=== PATIENT | female | born 1980 | race Caucasian/White ===

== ENCOUNTER → 2017-05-28 | Outpatient (CLI) | payer OTHER ==
--- NOTE | 2017-05-28 12:37 | RADIOLOGY REPORT (SQ) ---
EXAM DESCRIPTION: FOOT LEFT COMPLETE COMPLETED DATE/TIME: 05/28/2017 11:59 am REASON FOR STUDY: M79.672 PAIN IN LEFT FOOT M79.672 PAIN IN LEFT FOOT COMPARISON: None. NUMBER OF VIEWS: Three views. TECHNIQUE: AP, lateral and oblique radiographic images acquired of the left foot. LIMITATIONS: None. FINDINGS: MINERALIZATION: Normal. BONES: No acute fracture or dislocation. Prominent plantar calcaneal spur. JOINTS: No effusions. SOFT TISSUES: No soft tissue swelling. No foreign body. OTHER: No other significant finding. IMPRESSION: Calcaneal spur with no acute abnormality. TECHNICAL DOCUMENTATION: JOB ID: [id number] [employer]- All Rights Reserved
== END ==
LOC: RAD 11:38
PROVIDERS: ATTEND Family Medicine
DX: M79.672 Pain in left foot (principal)

== ENCOUNTER 2020-01-15 10:10 | Emergency (ER) | payer BC ==
--- NOTE | 2020-01-15 11:11 | ER Document Report ---
ED Medical Screen (RME) - General Chief Complaint: Chest Pain Stated Complaint: CHEST PAIN Time Seen by Provider: 01/15/20 11:05 Primary Care Provider: ANA ROSA HAYES [Primary Care Provider] - Follow up as needed Mode of Arrival: Ambulatory Information source: Patient Notes: HPI; 39-year-old female presents the emergency room with intermittent squeezing and tightness to her chest. States she woke up 3 AM this morning started having pain shortly after awakening. Worse around 7 AM. Went and saw her PCP who did an EKG and gave her 4 baby aspirin and sent her to the emergency room. States pain is slightly better but still describes it as a squeezing tightness in the center of her chest. PE: Alert and oriented x3. Mild distress noted. Lungs: Tattered expiratory wheezes no rhonchi no rales. Heart: Regular rate rhythm without murmurs rubs or gallops. I have greeted and performed a rapid initial assessment of this patient. A comprehensive ED assessment and evaluation of the patient, analysis of test results and completion of the medical decision making process will be conducted by additional ED providers. I have specifically instructed the patient or family members with the patient to immediately return to any nursing staff should anything change in the patient's condition or with their chief complaint. TRAVEL OUTSIDE OF THE [place] IN LAST 30 DAYS: No - Related Data Allergies/Adverse Reactions: No Known Allergies Allergy (Unverified 01/15/20 11:06) Physical Exam - Vital signs Vitals: Temp Pulse Resp BP Pulse Ox 98.2 F 57 L 18 146/95 H 100 01/15/20 10:01/15/20 10:01/15/20 10:01/15/20 10:01/15/20 10:21 Course - Vital Signs Vital signs: Temp Pulse Resp BP Pulse Ox 98.2 F 57 L 18 146/95 H 100 01/15/20 10:01/15/20 10:01/15/20 10:01/15/20 10:01/15/20 10:21 Doctor's Discharge - Discharge Referrals: ANA ROSA HAYES [Primary Care Provider] - Follow up as needed
--- NOTE | 2020-01-15 11:51 | RADIOLOGY REPORT (SQ) ---
EXAM DESCRIPTION: CHEST 2 VIEWS IMAGES COMPLETED DATE/TIME: 01/15/2020 11:22 am REASON FOR STUDY: chest pain COMPARISON: 09/01/2007 EXAM PARAMETERS: NUMBER OF VIEWS: two views TECHNIQUE: Digital Frontal and Lateral radiographic views of the chest acquired. RADIATION DOSE: NA LIMITATIONS: none FINDINGS: LUNGS AND PLEURA: No opacities, masses or pneumothorax. No pleural effusion. MEDIASTINUM AND HILAR STRUCTURES: No masses or contour abnormalities. HEART AND VASCULAR STRUCTURES: Heart normal size. No evidence for failure. BONES: No acute findings. HARDWARE: None in the chest. OTHER: No other significant finding. IMPRESSION: NO ACUTE RADIOGRAPHIC FINDING IN THE CHEST. TECHNICAL DOCUMENTATION: JOB ID: [id number] 2010 [employer]- All Rights Reserved Reading location - IP/workstation name: [email or web address]
[2020-01-15 12:02] LABS: ABSOLUTE BASOPHILS # (AUTO) 0.1 10^3/uL (0.0-0.2); ABSOLUTE EOSINOPHILS # (AUTO) 0.2 10^3/uL (0.0-0.6); ABSOLUTE MONOCYTES (AUTO) 0.6 10^3/uL (0.1-1.4); ABSOLUTE NEUT (AUTO) 6.2 10^3/uL (1.7-8.2); BASOPHILS % (AUTO) 0.8 % (0-2); EOSINOPHILS % (AUTO) 2.1 % (0-6); HEMATOCRIT 37.9 % (36.0-47.0); HEMOGLOBIN 13.1 g/dL (12.0-15.5); LYMPHOCYTES % (AUTO) 29.4 % (13-45); MEAN CORPUSCULAR HEMOGLOBIN 30.7 pg (27.0-33.4); MEAN CORPUSCULAR HGB CONC 34.6 g/dL (32.0-36.0); MEAN CORPUSCULAR VOLUME 89 fl (80-97); MONOCYTES % (AUTO) 6.3 % (3-13); PLATELET COUNT 383 10^3/uL (150-450); RED BLOOD COUNT 4.28 10^6/uL (3.72-5.28); RED CELL DISTRIBUTION WIDTH 13.9 % (11.5-14.0); SEGMENTED NEUTROPHILS % (AUTO) 61.4 % (42-78); TOTAL CELLS COUNTED % (AUTO) 100 %; WHITE BLOOD COUNT 10.1 10^3/uL (4.0-10.5)
[2020-01-15 12:13] LABS: ALKALINE PHOSPHATASE 115 U/L (38-126); ANION GAP 8 (5-19); ASPARTATE AMINO TRANSFERASE 24 U/L (14-36); BILIRUBIN,TOTAL 0.4 mg/dL (0.2-1.3); BLOOD UREA NITROGEN 13 mg/dL (7-20); CARBON DIOXIDE 27 mmol/L (22-30); CHLORIDE 102 mmol/L (98-107); CREATINE KINASE 61 U/L (30-135); GLUCOSE 102 mg/dL (75-110); POTASSIUM 3.3 mmol/L (3.6-5.0); TOTAL PROTEIN 7.2 g/dL (6.3-8.2)
[2020-01-15 12:25] LABS: CREATINE KINASE MB 0.24 ng/mL (<4.55); TROPONIN I < 0.012 ng/mL
[2020-01-15] MEDS ORDERED: POTASSIUM CHLORIDE 20 MEQ PACKET PO ONE (17:39)
[2020-01-15 18:19] VITALS: BP 129/67
--- NOTE | 2020-01-15 21:06 | EKG REPORT ---
SEVERITY:- BORDERLINE ECG - SINUS RHYTHM BORDERLINE T ABNORMALITIES, ANTERIOR LEADS : Confirmed by: Rj Nolasco MD 15-Jan-2020 21:06:03
--- NOTE | 2020-01-16 01:14 | ER Document Report ---
Entered by ASHLEY STEVEN SCRIBE 01/15/20 [id number] Acting as scribe for:CHELLY ALTAMIRANO DO ED General - General Chief Complaint: Chest Pain > 30 Stated Complaint: CHEST PAIN Time Seen by Provider: 01/15/20 11:05 Primary Care Provider: ANA ROSA HAYES [NO LOCAL MD] - Follow up as needed TATYANA REYNA MD [ACTIVE PROVISIONAL STAFF] - 01/16/20 Mode of Arrival: Ambulatory Information source: Patient Notes: This 39 year old female patient with a history of HTN, HLD, and FHx of CAD presents to the ED today with complaints of intermittent chest pain that started around 0300 this morning. Patient describes the pain as a squeezing sensation in the center of her chest. She states that she rolled over in bed to check on her felt the sudden onset of pain. She states that the pain eased off and she was able to sleep for about x30 minutes around 0600 and the pain returned at 0700. She reports that she went to [facility] and had an EKG that read "consider inferior myocardial infarction", so her PCP gave her x4 baby aspirin and sent her to the ED. TRAVEL OUTSIDE OF THE [place] IN LAST 30 DAYS: No - Related Data Allergies/Adverse Reactions: No Known Allergies Allergy (Unverified 01/15/20 11:06) Home Medications: duloxetine, baby asa, metoprolol tart, loratadine, provastin, alprazolam prn, proair prn, gabapentin, vit d, triam/hctz Past Medical History - General Information source: Patient - Social History Smoking Status: Never Smoker Cigarette use (# per day): No Chew tobacco use (# tins/day): No Smoking Education Provided: No Frequency of alcohol use: Rare Drug Abuse: None Lives with: Spouse/Significant other Family History: Reviewed & Not Pertinent, CAD - Dad w/ stents in his 40s Patient has suicidal ideation: No Patient has homicidal ideation: No - Past Medical History Cardiac Medical History: Reports: Hx Hypercholesterolemia, Hx Hypertension Pulmonary Medical History: Reports: Hx Asthma GI Medical History: Reports: Hx Gastroesophageal Reflux Disease Psychiatric Medical History: Reports: Hx Anxiety Traumatic Medical History: Reports: Hx Fractures - Left talus Past Surgical History: Reports: Hx Tubal Ligation Review of Systems - Review of Systems Constitutional: No symptoms reported EENT: No symptoms reported Cardiovascular: See HPI, Chest pain Respiratory: See HPI, Sputum Gastrointestinal: See HPI, Vomiting Genitourinary: No symptoms reported Female Genitourinary: See HPI, Last menstrual period - last week Musculoskeletal: No symptoms reported Skin: No symptoms reported Hematologic/Lymphatic: See HPI, Easy bruising Neurological/Psychological: No symptoms reported -: Yes All other systems reviewed and negative Physical Exam - Vital signs Vitals: Temp Pulse Resp BP Pulse Ox 98.2 F 57 L 18 146/95 H 100 01/15/20 10:21 01/15/20 10:21 01/15/20 10:21 01/15/20 10:21 01/15/20 10:21 - General General appearance: Alert In distress: None - HEENT Head: Normocephalic, Atraumatic Eyes: Normal Pupils: PERRL - Respiratory Respiratory status: No respiratory distress Chest status: Tender - Mild sternal tenderness to palpation Breath sounds: Normal Chest palpation: Normal - Cardiovascular Rhythm: Regular Heart sounds: Normal auscultation Murmur: No Friction rub: No Gallop: None auscultated - Abdominal Inspection: Normal Distension: No distension Bowel sounds: Normal Tenderness: Tender - Mild epigastric pain, LUQ tenderness to palpation, Other - Abdomen soft Organomegaly: No organomegaly - Back Back: Normal, Nontender - Extremities General upper extremity: Normal inspection General lower extremity: Normal inspection. No: Edema - Neurological Neuro grossly intact: Yes Orientation: AAOx4 Bryant Coma Scale Eye Opening: Spontaneous Bryant Coma Scale Verbal: Oriented Jeremy Coma Scale Motor: Obeys Commands Jeremy Coma Scale Total: 15 - Psychological Associated symptoms: Normal affect, Normal mood - Skin Skin Temperature: Warm Skin Moisture: Dry Skin Color: Normal Skin irregularity: other - Ecchymosis to lower extremities Course - Re-evaluation Re-evalutation: 01/15/20 17:44 MDM 39 year old with chest pain since 3 am. Better now. Nontoxic and reassuring workup here. She should have functional study and will refer her to local cardiology for this. She is already taking aspirin and has well controlled Htn. SBP 115 with me in room. - Vital Signs Vital signs: Temp Pulse Resp BP Pulse Ox 97.3 F 51 L 16 138/75 H 98 01/15/20 14:56 01/15/20 14:56 01/15/20 14:56 01/15/20 14:56 01/15/20 16:12 - Laboratory Result Diagrams: 01/15/20 11:40 01/15/20 11:40 Laboratory results interpreted by me: 01/15/20 11:40 Sodium 136.9 L Potassium 3.3 L - Diagnostic Test Radiology reviewed: Reports reviewed - EKG Interpretation by Me EKG shows normal: Sinus rhythm Rate: Bradycardia Rhythm: NSR - Sinus Elias [address] elevation or depression my interpretation. Boon/QRS: No: Right axis deviation Voltage: No: Increased voltage Discharge - Discharge Clinical Impression: Chest pain Qualifiers: Chest pain type: unspecified Qualified Code(s): R07.9 - Chest pain, unspecified Condition: Stable Disposition: HOME, SELF-CARE Instructions: Aspirin (Cardiac) ([facility]), Chest Wall Pain ([facility]), Chest Pain of Unclear Cause ([facility]) Additional Instructions: Rest, fluids, please return here for any problems or any concerns. Take the protonix as directed for reflux. Call [place] and Dr. Reyna office for fol low up. Prescriptions: Pantoprazole Sodium [Protonix [address] Tablet] 40 mg PO QAM #30 tablet. Pantoprazole Sodium [Protonix [address] Tablet] 40 mg PO QAM #30 tablet. Forms: Return to Work Referrals: ANA ROSA HAYES [NO LOCAL MD] - Follow up as needed TATYANA REYNA MD [ACTIVE PROVISIONAL STAFF] - 01/16/20 I personally performed the services described in the documentation, reviewed and edited the documentation which was dictated to the scribe in my presence, and it accurately records my words and actions.
== END 2020-01-15 18:18 | disposition home or self-care (01) ==
LOC: ER 10:10
DX: R07.9 Chest pain, unspecified (principal); I10 Essential (primary) hypertension; I25.10 Atherosclerotic heart disease of native coronary artery without angina pectoris; E78.00 Pure hypercholesterolemia, unspecified; Z98.51 Tubal ligation status
CPT/HCPCS: 93005; 99285; 36415; 82553; 82550; 85025; 80053; 84484; 71046; 93010; J3490

== ENCOUNTER 2020-03-25 05:35 | Inpatient (IN) | payer BC ==
[2020-03-25] MEDS ORDERED: IPRATROPIUM/ALBUTEROL 0.5-2.5 MG/3 ML AMPUL NEB ONE (07:02)
[2020-03-25 08:11] LABS: ABSOLUTE MONOCYTES (AUTO) 0.3 10^3/uL (0.1-1.4); ABSOLUTE NEUT (AUTO) 4.9 10^3/uL (1.7-8.2); BASOPHILS % (AUTO) 0.5 % (0-2); EOSINOPHILS % (AUTO) 0.2 % (0-6); HEMATOCRIT 34.4 % (36.0-47.0); HEMOGLOBIN 11.9 g/dL (12.0-15.5); LYMPHOCYTES % (AUTO) 15.6 % (13-45); MEAN CORPUSCULAR HEMOGLOBIN 29.2 pg (27.0-33.4); MEAN CORPUSCULAR HGB CONC 34.5 g/dL (32.0-36.0); MEAN CORPUSCULAR VOLUME 85 fl (80-97); MONOCYTES % (AUTO) 5.3 % (3-13); PLATELET COUNT 263 10^3/uL (150-450); RED BLOOD COUNT 4.07 10^6/uL (3.72-5.28); RED CELL DISTRIBUTION WIDTH 13.5 % (11.5-14.0); SEGMENTED NEUTROPHILS % (AUTO) 78.4 % (42-78); TOTAL CELLS COUNTED % (AUTO) 100 %; WHITE BLOOD COUNT 6.2 10^3/uL (4.0-10.5)
[2020-03-25 08:13] LABS: ARTERIAL BLOOD BASE EXCESS 2.8 mmol/L; ARTERIAL BLOOD FIO2 ROOM AIR; ARTERIAL BLOOD H2CO3 1.14 mmol/L (1.05-1.35); ARTERIAL BLOOD HCO3 26.5 mmol/L (20-24); ARTERIAL BLOOD O2 SATURATION 92.5 % (94-98); ARTERIAL BLOOD PCO2 37.9 mmHg (35-45); ARTERIAL BLOOD PH 7.46 (7.35-7.45); ARTERIAL BLOOD PO2 60.2 mmHg (80-100); ARTERIAL BLOOD TOTAL CO2 27.7 mmol/L (21-25)
[2020-03-25] MEDS ORDERED: ONDANSETRON HCL INJ/PF 4 MG/2 ML SDV IV ONE (08:17)
[2020-03-25] MEDS ORDERED: KETOROLAC TROMETHAMINE INJ/PF 30 MG/1 ML SDV IV ONE (08:17)
[2020-03-25] MEDS ORDERED: NORMAL SALINE 1000 ML 1,000 ML IV ONE (08:17)
[2020-03-25] MEDS ORDERED: METHYLPREDNISOLONE INJ 125 MG/2 ML SDV IV ONE (08:17)
--- NOTE | 2020-03-25 08:20 | ER Document Report ---
Entered by TACO DAVIS SCRIBE 03/25/20 0740 Acting as scribe for:ERICKA AGUILAR MD ED Respiratory Problem - General Chief Complaint: Breathing Difficulty Stated Complaint: DIFFICULTY BREATHING Time Seen by Provider: 03/25/20 06:46 Mode of Arrival: Ambulatory Information source: Patient Notes: This 40 year old female patient with asthma that is COVID-19 positive presents to the emergency department today with complaints of shortness of breath. She began having symptoms on March 14 and was tested on March 15. She reports increasing shortness of breath over the last few days becoming the worst last night. Patient also complains of posttussive emesis. TRAVEL OUTSIDE OF THE [place] IN LAST 30 DAYS: No - Related Data Allergies/Adverse Reactions: alyson Allergy (Unknown, Verified 03/25/20 06:11) pepper (genus Capsicum) Allergy (Unknown, Verified 03/25/20 06:11) PLASTIC GROCERY BAGS Adverse Reaction (Uncoded 03/25/20 06:11) Past Medical History - General Information source: Patient - Social History Smoking Status: Never Smoker Cigarette use (# per day): No Chew tobacco use (# tins/day): No Frequency of alcohol use: None Drug Abuse: None Lives with: Family Family History: Reviewed & Not Pertinent, CAD - Dad w/ stents in his 40s Patient has homicidal ideation: No - Past Medical History Cardiac Medical History: Reports: Hx Hypercholesterolemia, Hx Hypertension Pulmonary Medical History: Reports: Hx Asthma GI Medical History: Reports: Hx Gastroesophageal Reflux Disease Psychiatric Medical History: Reports: Hx Anxiety Traumatic Medical History: Reports: Hx Fractures - Left talus Past Surgical History: Reports: Hx Tubal Ligation Review of Systems - Review of Systems Constitutional: See HPI, Fever EENT: No symptoms reported Cardiovascular: No symptoms reported Respiratory: See HPI, Cough, Short of breath Gastrointestinal: See HPI, Vomiting Genitourinary: No symptoms reported Female Genitourinary: No symptoms reported Musculoskeletal: No symptoms reported Skin: No symptoms reported Hematologic/Lymphatic: No symptoms reported Neurological/Psychological: No symptoms reported -: Yes All other systems reviewed and negative Physical Exam - Vital signs Vitals: Resp 25 H 03/25/20 05:35 - Notes Notes: Physical Exam: General: Alert, appears well. HEENT: Normocephalic. Atraumatic. PERRL. Extraocular movements intact. Oropharynx clear. Neck: Supple. Non-tender. Respiratory: Moderate respiratory distress. Wheezing bilaterally, tachypneic. Anterior chest wall tenderness to palpation. Cardiovascular: Tachycardic, regular rhythm. Abdominal: Normal Inspection. Non-tender. No distension. Normal Bowel Sounds. Back: No gross abnormalities. Extremities: Moves all four extremities. Upper extremities: Normal inspection. Normal ROM. Lower extremities: Normal inspection. No edema. Normal ROM. Neurological: Normal cognition. AAOx4. Normal speech. Psychological: Normal affect. Normal Mood. Skin: Warm. Dry. Normal color. Course - Re-evaluation Re-evalutation: 03/25/20 14:01 The patient was evaluated during the global COVID-19 pandemic and that diagnosis was suspected/considered upon their initial presentation. Their evaluation, treatment and testing was consistent with current guidelines for patients who present with complaints or symptoms that may be related to COVID-19. - Vital Signs Vital signs: Temp Pulse Resp BP Pulse Ox 97.9 F 76 18 127/69 H 90 L 03/27/20 15:34 03/27/20 15:34 03/27/20 15:34 03/27/20 15:34 03/27/20 15:34 - Laboratory Result Diagrams: 03/27/20 05:00 03/25/20 11:24 Laboratory results interpreted by me: 03/25/20 03/25/20 03/25/20 06:01 06:01 07:43 Hgb 11.9 L Hct 34.4 L Seg Neutrophils % 78.4 H ABG pH 7.46 H ABG pO2 60.2 L ABG HCO3 26.5 H ABG Total CO2 27.7 H ABG O2 Saturation 92.5 L Sodium 134.3 L Potassium 3.1 L Glucose 125 H - Diagnostic Test Radiology reviewed: Image reviewed, Reports reviewed - Chest x-ray shows patchy parenchymal airspace disease worrisome for multifocal pneumonia. - EKG Interpretation by Me EKG shows normal: Sinus rhythm, [place], Intervals. abnormal: QRS Complexes - Inferior Q's, ST-T Waves - Borderline anterior T abnormalities Rate: Normal - 80 Rhythm: NSR When compared to previous EKG there are: No significant change Critical Care Note - Critical Care Note Total time excluding time spent on procedures (mins): 40 Comments: At least 40 minutes spent evaluating the patient getting history and physical, reviewing lab work, repeat evaluation in determining just how hypoxic she was and the need for admission to the hospital. Time spent discussing the case with the hospitalist. Discharge - Discharge Clinical Impression: Lab test positive for detection of COVID-19 virus, Pneumonia due to 2019 novel coronavirus, Hypoxemia Condition: Fair Disposition: ADMITTED INPATIENT Admitting Provider: William (Hospitalist) Unit Admitted: Telemetry I personally performed the services described in the documentation, reviewed and edited the documentation which was dictated to the scribe in my presence, and it accurately records my words and actions.
[2020-03-25 08:23] LABS: ALBUMIN 3.5 g/dL (3.5-5.0); ALKALINE PHOSPHATASE 98 U/L (38-126); ANION GAP 9 (5-19); ASPARTATE AMINO TRANSFERASE 29 U/L (14-36); BILIRUBIN,DIRECT 0.3 mg/dL (0.0-0.4); BILIRUBIN,TOTAL 0.6 mg/dL (0.2-1.3); BLOOD UREA NITROGEN 13 mg/dL (7-20); CALCIUM 8.4 mg/dL (8.4-10.2); CARBON DIOXIDE 26 mmol/L (22-30); CHLORIDE 99 mmol/L (98-107); CREATINE KINASE 55 U/L (30-135); GLUCOSE 125 mg/dL (75-110); POTASSIUM 3.1 mmol/L (3.6-5.0); TOTAL PROTEIN 6.6 g/dL (6.3-8.2)
--- NOTE | 2020-03-25 08:27 | RADIOLOGY REPORT (SQ) ---
EXAM DESCRIPTION: CHEST SINGLE VIEW IMAGES COMPLETED DATE/TIME: 03/25/2020 7:38 am REASON FOR STUDY: COVID respiratory distress COMPARISON: AP chest 01/15/2020 EXAM PARAMETERS: NUMBER OF VIEWS: One view. TECHNIQUE: Single frontal radiographic view of the chest acquired. RADIATION DOSE: NA LIMITATIONS: None. FINDINGS: LUNGS AND PLEURA: Patchy bilateral lung parenchymal airspace disease worrisome for multifo tanja pneumonia. No pleural effusion. No pneumothorax. MEDIASTINUM AND HILAR STRUCTURES: No masses. Contour normal. HEART AND VASCULAR STRUCTURES: Heart normal in size. Normal vasculature. BONES: No acute findings. HARDWARE: None in the chest. OTHER: No other significant finding. IMPRESSION: Patchy bilateral lung parenchymal airspace disease worrisome for multifocal pneumonia TECHNICAL DOCUMENTATION: JOB ID: [id number] 2010 [employer]- All Rights Reserved Reading location - IP/workstation name: [email or web address]
[2020-03-25 08:36] LABS: APPEARANCE,URINE CLEAR; BILIRUBIN,URINE NEGATIVE (NEGATIVE); COLOR,URINE YELLOW; GLUCOSE, URINE NEGATIVE (NEGATIVE); KETONES,URINE NEGATIVE (NEGATIVE); LEUKOCYTE ESTERASE,URINE NEGATIVE (NEGATIVE); NITRITE,URINE NEGATIVE (NEGATIVE); PROTEIN,URINE NEGATIVE (NEGATIVE); URINE SPECIFIC GRAVITY 1.018; UROBILINOGEN,URINE NEGATIVE mg/dL (<2.0)
[2020-03-25] MEDS ORDERED: ONDANSETRON HCL INJ/PF 4 MG/2 ML SDV IV PRN (10:04)
[2020-03-25] MEDS ORDERED: IPRATROPIUM/ALBUTEROL 0.5-2.5 MG/3 ML AMPUL NEB PRN (10:04)
[2020-03-25] MEDS ORDERED: ACETAMINOPHEN 325 MG TABLET PO PRN (10:04)
[2020-03-25] MEDS ORDERED: MAG HYDROX/AL HYDROX/SIMETH SUSP 30 ML UDCUP PO PRN (10:04)
[2020-03-25] MEDS ORDERED: TEMAZEPAM 7.5 MG CAPSULE PO PRN (10:04)
[2020-03-25] MEDS ORDERED: MAGNESIUM HYDROXIDE SUSP 30 ML UDCUP PO PRN (10:04)
[2020-03-25] MEDS ORDERED: PHARMACY COMMUNICATION ORDER MC NR (10:45)
[2020-03-25] MEDS: ACYCLOVIR 200 MG CAPSULE PO SCH ×2 (11:36→17:50)
[2020-03-25] MEDS: AZITHROMYCIN 250 MG TABLET PO SCH (11:36)
[2020-03-25] MEDS: DEXAMETHASONE 4 MG TABLET PO SCH ×2 (11:36→17:50)
[2020-03-25] MEDS: RINGERS SOLUTION,LACTATED 1,000 ML IV PRN ×2 (11:37→22:08)
[2020-03-25] MEDS: ENOXAPARIN SODIUM INJ 40 MG/0.4 ML DISP.SYRIN SUBCUT SCH (11:37)
[2020-03-25] MEDS: OXYCODONE-ACETAMINOPHEN 5-325 MG TABLET PO PRN ×2 (11:39→20:18)
[2020-03-25 11:59] LABS: ANION GAP 9 (5-19); BLOOD UREA NITROGEN 11 mg/dL (7-20); CALCIUM 8.1 mg/dL (8.4-10.2); CARBON DIOXIDE 24 mmol/L (22-30); CHLORIDE 103 mmol/L (98-107); GLUCOSE 132 mg/dL (75-110); POTASSIUM 3.7 mmol/L (3.6-5.0)
[2020-03-25 12:02] LABS: C-REACTIVE PROTEIN 71.3 mg/L (<10.0)
--- NOTE | 2020-03-25 13:13 | EKG REPORT ---
SEVERITY:- BORDERLINE ECG - SINUS RHYTHM INFERIOR Q WAVES, PROBABLY NORMAL VARIATION BORDERLINE T ABNORMALITIES, ANTERIOR LEADS : Confirmed by: Inder Brock MD 25-Mar-2020 13:12:17
[2020-03-25] MEDS: IPRATROPIUM/ALBUTEROL 0.5-2.5 MG/3 ML AMPUL NEB SCH ×2 (14:39→21:24)
[2020-03-25] MEDS ORDERED: REMDESIVIR (EUA) 200 MG in NORMAL SALINE 250 ML IV ONE (15:00)
[2020-03-25] MEDS: GUAIFENESIN/CODEINE PHOS 100-10 MG/ 5 ML UDC PO PRN (15:23)
[2020-03-25] MEDS: ASCORBIC ACID 500 MG TABLET PO SCH (17:50)
--- NOTE | 2020-03-25 18:16 | PDOC H&P ---
History of Present Illness Admission Date/PCP: 03/25/20 09:30 LUIS CHOW-Yazmin Patient complains of: Shortness of breath , Positive COVID History of Present Illness: JANI SEPULVEDA is a 40 year old female with past medical history of mild intermittent asthma, hypertension, GERD, HLD, anxiety and confirmed positive COVID-19 (03/15/2020) who reported to the emergency department today with concerns regarding x1 week history of increasing shortness of breath. Reports associated fevers, chills, generalized weakness, chest wall pain, palpitations, cough, postutssive emesis, and NVD. Symptoms treated with cough syrup and increased use/frequency of albuterol. Symptoms have progressively increased in severity since onset and became intolerable last night which prompted her visit to the emergency department. Evaluation in the Emergency Department significant for tachycardia, tachypnea, O2 sat 88% on room air. She is afebrile with blood pressure in the 120/70s. Hypoxemic (pO2 60l.2) on ABG. Hyponatrmic and hypokalemic on chemistry. CXR consistent with multifocal pneumonia. Troponin and D-dimer negative. Patient was placed on NC 3L and treated single dose methylprednisolone and IV fluids. She was subsequently admitted to the hospitalist service for further treatment and evaluation. Past Medical History Cardiac Medical History: Reports: Hyperlipidema, Hypertension Pulmonary Medical History: Reports: Asthma GI Medical History: Reports: Gastroesophageal Reflux Disease Psychiatric Medical History: Reports: General Anxiety Disorder Past Surgical History Past Surgical History: Reports: Tubal Ligation Social History Information Source: Patient Lives with: Family Smoking Status: Never Smoker Electronic Cigarette use?: No Frequency of Alcohol Use: Rare Hx Recreational Drug Use: No Drugs: None Hx Prescription Drug Abuse: No - Advance Directive Resuscitation Status: Full Code Family History Family History: CAD - Dad w/ stents in his 40s, DM, Hypertension, Other - Asthma Parental Family History Reviewed: Yes Children Family History Reviewed: Yes Sibling(s) Family History Reviewed.: Yes Medication/Allergy Home Medications: Pantoprazole Sodium [Protonix [address] Tablet] 40 mg PO QAM #30 tablet. 01/15/20 Fluoxetine HCl [Prozac] 20 mg PO QAM 03/25/20 Gabapentin [Neurontin 300 mg Capsule] 300 mg PO Q8 03/25/20 Metoprolol Tartrate [Lopressor] 50 mg PO TID 03/25/20 Pravastatin Sodium 40 mg PO DAILY 03/25/20 Promethazine HCl/Codeine [Prometh-Codein 6.25-10 mg/5 ml] 5 ml PO Q6HP PRN 03/25/20 Triamterene/Hydrochlorothiazid [Triamterene-Hctz 37.5-25 mg Tb] 1 each PO DAILY 03/25/20 Allergies/Adverse Reactions: alyson Allergy (Unknown, Verified 03/25/20 06:11) pepper (genus Capsicum) Allergy (Unknown, Verified 03/25/20 06:11) PLASTIC GROCERY BAGS Adverse Reaction (Uncoded 03/25/20 06:11) Review of Systems Constitutional: PRESENT: chills, fatigue, fever(s), headache(s) Eyes: ABSENT: visual disturbances Nose, Mouth, and Throat: PRESENT: headache(s). ABSENT: vertigo Cardiovascular: PRESENT: dyspnea on exertion. ABSENT: chest pain Respiratory: PRESENT: cough, dyspnea. ABSENT: hemoptysis Gastrointestinal: PRESENT: abdominal pain, diarrhea, nausea, vomiting. ABSENT: constipation, hematemesis Genitourinary: ABSENT: difficulty urinating, dysuria, hematuria Musculoskeletal: ABSENT: back pain, deformity Integumentary: PRESENT: diaphoresis Neurological: PRESENT: paresthesias. ABSENT: abnormal speech, confusion, dizziness Psychiatric: ABSENT: anxiety, depression Endocrine: ABSENT: cold intolerance, heat intolerance, polyphagia, polyuria Hematologic/Lymphatic: ABSENT: easy bruising, lymphadenopathy Allergic/Immunologic: PRESENT: seasonal rhinorrhea Physical Exam Vital Signs: Temp Pulse Resp BP Pulse Ox 99.9 F 27 H 110/55 L 97 03/25/20 05:36 03/25/20 09:01 03/25/20 09:01 03/25/20 09:01 Intake & Output 03/24/20 03/25/20 03/26/20 06:59 06:59 06:59 Intake Total 1000 Balance 1000 Weight 117.6 kg General appearance: PRESENT: cooperative, obese, other - Moderate distress Head exam: PRESENT: atraumatic, normocephalic Eye exam: PRESENT: conjunctiva pink, EOMI, PERRLA Ear exam: PRESENT: normal external ear exam. ABSENT: bleeding, drainage Mouth exam: PRESENT: dry mucosa, tongue midline Neck exam: PRESENT: full ROM. ABSENT: lymphadenopathy, tenderness Respiratory exam: PRESENT: chest wall tenderness, tachypnea, wheezes - Bilaterally, other - Moderate respiratory distress. ABSENT: retraction Cardiovascular exam: PRESENT: RRR, tachycardia GI/Abdominal exam: PRESENT: normal bowel sounds, soft, tenderness - diffuse. ABSENT: distended, firm, guarding, rigid Rectal exam: PRESENT: deferred Extremities exam: PRESENT: full ROM. ABSENT: calf tenderness, clubbing Musculoskeletal exam: PRESENT: ambulatory, full ROM. ABSENT: deformity, dislocation Neurological exam: PRESENT: alert, awake, oriented to person, oriented to place, oriented to time, oriented to situation, CN II-XII grossly intact. ABSENT: motor sensory deficit Psychiatric exam: PRESENT: appropriate affect, normal mood Skin exam: PRESENT: dry, intact, warm. ABSENT: rash Results Laboratory Results: 03/25/20 06:01 03/25/20 06:01 03/25/20 03/25/20 03/25/20 06:01 06:01 07:43 WBC 6.2 RBC 4.07 Hgb 11.9 L Hct 34.4 L MCV 85 MCH 29.2 MCHC 34.5 RDW 13.5 Plt Count 263 Seg Neutrophils % 78.4 H Carbonic Acid 1.14 HCO3/H2CO3 Ratio 23:1 ABG pH 7.46 H ABG pCO2 37.9 ABG pO2 60.2 L ABG HCO3 26.5 H ABG O2 Saturation 92.5 L ABG Base Excess 2.8 FiO2 ROOM AIR Sodium 134.3 L Potassium 3.1 L Chloride 99 Carbon Dioxide 26 Anion Gap 9 BUN 13 Creatinine 0.73 Est GFR ( Amer) > 60 Glucose 125 H Calcium 8.4 Magnesium 2.1 Ferritin 58.10 Total Bilirubin 0.6 AST 29 Alkaline Phosphatase 98 Total Protein 6.6 Albumin 3.5 Urine Color Urine Appearance Urine pH Ur Specific Dale Urine Protein Urine Glucose (UA) Urine Ketones Urine Blood Urine Nitrite Ur Leukocyte Esterase Urine WBC (Auto) Urine RBC (Auto) 03/25/20 08:10 WBC RBC Hgb Hct MCV MCH MCHC RDW Plt Count Seg Neutrophils % Carbonic Acid HCO3/H2CO3 Ratio ABG pH ABG pCO2 ABG pO2 ABG HCO3 ABG O2 Saturation ABG Base Excess FiO2 Sodium Potassium Chloride Carbon Dioxide Anion Gap BUN Creatinine Est GFR ( Amer) Glucose Calcium Magnesium Ferritin Total Bilirubin AST Alkaline Phosphatase Total Protein Albumin Urine Color YELLOW Urine Appearance CLEAR Urine pH 6.0 Ur Specific Dale 1.018 Urine Protein NEGATIVE Urine Glucose (UA) NEGATIVE Urine Ketones NEGATIVE Urine Blood NEGATIVE Urine Nitrite NEGATIVE Ur Leukocyte Esterase NEGATIVE Urine WBC (Auto) 3 Urine RBC (Auto) 0 03/25/20 03/25/20 06:01 06:01 Creatine Kinase 55 Troponin I < 0.012 Impressions: Chest X-Ray 03/25/20 07:02 IMPRESSION: Patchy bilateral lung parenchymal airspace disease worrisome for multifocal pneumonia Assessment and Plan - Diagnosis (1) Lab test positive for detection of COVID-19 virus Is this a current diagnosis for this admission?: Yes Plan: History of +COVID test on 03/15/2020. On exam she is tachycardic, otherwise hemodynamically stable. D-dimer, troponin and ferratin negative. LDH (355) and CRP (71.3) elevated, will use values as baseline to monitor progression of disease. Treatment regimen initiated includes: -Azithromycin -Dexamethasone -Remdesivir -Melatonin, Vit C, Vit D, and Zync Provide supplemental oxygen as needed maintain saturations greater than 89%. As needed nebulizer treatments. Isolation precautions initiated. (2) Pneumonia due to 2019 novel coronavirus Is this a current diagnosis for this admission?: Yes Plan: Positive COVID test 03/15/2020 with CXR supporting penumonia consistent with COVID. Treatment otherwise as stated and discussed in 1. (3) Hypoxemia Is this a current diagnosis for this admission?: Yes Plan: pO2 60.2 on ABG, O2 sats at 88 on room air. 2L NC initiated with O2 sats 94. Monitor O2 sat closely. Advance oxygen therapy as necessary. (4) Hyponatremia Is this a current diagnosis for this admission?: Yes Plan: Hyponatremic 136.3. Treat with IV Fluids. Repeat BMP in the morning. (5) Asthma Qualifiers: Asthma severity: mild Asthma persistence: intermittent Asthma complication type: uncomplicated Qualified Code(s): J45.20 - Mild intermittent asthma, uncomplicated Is this a current diagnosis for this admission?: Yes Plan: History of mild, intermittent Asthma with increase in albuterol treatment to several times a day since COVID dx. Treat symptoms with scheduled breathing treatments. (6) GERD (gastroesophageal reflux disease) Qualifiers: Esophagitis presence: without esophagitis Qualified Code(s): K21.9 - Gastro-esophageal reflux disease without esophagitis Is this a current diagnosis for this admission?: Yes Plan: Treated with PPI and H2 blockade daily. Resume home treatment regimen (7) HTN (hypertension) Qualifiers: Hypertension type: essential hypertension Qualified Code(s): I10 - Essential (primary) hypertension Is this a current diagnosis for this admission?: Yes Plan: HTN well controlled in the 120s/70s. Resume home treatment regimen. Monitor. - Time Time Spent with patient: 35 or more minutes Medications reviewed and adjusted accordingly: Yes Anticipated Discharge Disposition: Home, Self Care Anticipated Discharge Timeframe: Unknown - Inpatient Certification Based on my medical assessment, after consideration of the patient's comorbidities, presenting symptoms, or acuity I expect that the services needed warrant INPATIENT care.: Yes I certify that my determination is in accordance with my understanding of [facility]'s requirements for reasonable and necessary INPATIENT services [42 CFR 412.3e].: Yes Medical Necessity: Failure to Improve With Outpatient Therapy, Significant Comorbidiites Make Outpatient Treatment Too Risky, Need Close Monitoring Due to Risk of Patient Decompensation, Need For IV Fluids, Need For Continuous Telemetry Monitoring, Need for Nebulizer Therapy and Monitoring of Response, Need for IV Antibiotics, Risk of Complication if Not Cared For in Hospital, Risk of Diagnosis Which Will Require Inpatient Eval/Care/Monitoring Post Hospital Care: D/C or Transfer Summary
[2020-03-25] MEDS: MELATONIN 3 MG TABLET PO SCH (22:08)
[2020-03-26] MEDS: DEXAMETHASONE 4 MG TABLET PO SCH ×2 (00:09→05:02)
[2020-03-26] MEDS: PANTOPRAZOLE SODIUM 40 MG TABLET.DR PO SCH (05:02)
[2020-03-26] MEDS: RINGERS SOLUTION,LACTATED 1,000 ML IV PRN ×2 (05:03→15:54)
[2020-03-26 05:21] LABS: ABSOLUTE MONOCYTES (AUTO) 0.3 10^3/uL (0.1-1.4); ABSOLUTE NEUT (AUTO) 5.1 10^3/uL (1.7-8.2); BASOPHILS % (AUTO) 0.3 % (0-2); HEMATOCRIT 34.5 % (36.0-47.0); HEMOGLOBIN 11.8 g/dL (12.0-15.5); LYMPHOCYTES % (AUTO) 15.3 % (13-45); MEAN CORPUSCULAR HGB CONC 34.2 g/dL (32.0-36.0); MEAN CORPUSCULAR VOLUME 85 fl (80-97); MONOCYTES % (AUTO) 5.4 % (3-13); PLATELET COUNT 253 10^3/uL (150-450); RED BLOOD COUNT 4.08 10^6/uL (3.72-5.28); RED CELL DISTRIBUTION WIDTH 13.7 % (11.5-14.0); TOTAL CELLS COUNTED % (AUTO) 100 %; WHITE BLOOD COUNT 6.4 10^3/uL (4.0-10.5)
[2020-03-26] MEDS: IPRATROPIUM/ALBUTEROL 0.5-2.5 MG/3 ML AMPUL NEB SCH ×3 (08:44→20:43)
[2020-03-26] MEDS: ENOXAPARIN SODIUM INJ 40 MG/0.4 ML DISP.SYRIN SUBCUT SCH (09:23)
[2020-03-26] MEDS: ASCORBIC ACID 500 MG TABLET PO SCH ×2 (09:25→17:09)
[2020-03-26] MEDS: CHOLECALCIFEROL (D3) 1,000 UNIT (25 MCG) TABLET PO SCH (09:25)
[2020-03-26] MEDS: AZITHROMYCIN 250 MG TABLET PO SCH (09:25)
[2020-03-26] MEDS: OXYCODONE-ACETAMINOPHEN 5-325 MG TABLET PO PRN (09:25)
[2020-03-26] MEDS: ZINC SULFATE 220 MG CAPSULE PO SCH (09:43)
[2020-03-26] MEDS ORDERED: ZINC SULFATE 220 MG CAPSULE PO SCH (10:00)
[2020-03-26] MEDS ORDERED: DEXAMETHASONE 4 MG TABLET PO SCH (10:00)
[2020-03-26] MEDS: DEXAMETHASONE SOD PHOS INJ 10 MG/1 ML VIAL IV SCH (11:47)
[2020-03-26] MEDS: REMDESIVIR (EUA) 100 MG in NORMAL SALINE 250 ML IV SCH (11:48)
--- NOTE | 2020-03-26 12:25 | PDOC PROGRESS REPORT ---
Subjective Progress Note for:: 03/26/20 Subjective:: JANI SEPULVEDA is a 40 year old female with past medical history of mild intermittent asthma, hypertension, GERD, HLD, anxiety and confirmed positive COVID-19 (03/15/2020) who reported to the emergency department today with concerns regarding x1 week history of increasing shortness of breath. Reports associated fevers, chills, generalized weakness, chest wall pain, palpitations, cough, postutssive emesis, and NVD. Symptoms treated with cough syrup and increased use/frequency of albuterol. Symptoms have progressively increased in severity since onset and became intolerable last night which prompted her visit to the emergency department. Evaluation in the Emergency Department significant for tachycardia, tachypnea, O2 sat 88% on room air. She is afebrile with blood pressure in the 120/70s. Hypoxemic (pO2 60l.2) on ABG. Hyponatremic and hypokalemic on chemistry. CXR consistent with multifocal pneumonia. Troponin and D-dimer negative. Patient was placed on NC 3L and treated single dose methylprednisolone and IV fluids. She was subsequently admitted to the hospitalist service for further treatment and evaluation. D2 hospital stay 03/26/20. She was seen and examined at bedside. She reports that her breathing seems much worse today compared to yesterday, although her O2 requirements has not increased. She still reports having LBM. Appetite is fair, she is afebrile. She received her first dose of remdesivir today. D2 of dexamethasone. She is also D2 of zithromax. Reason For Visit: COVID Physical Exam Vital Signs: Temp Pulse Resp BP Pulse Ox 97.6 F 55 L 18 133/70 H 94 03/26/20 10:00 03/26/20 08:16 03/26/20 08:16 03/26/20 08:16 03/26/20 08:44 Intake & Output 03/25/20 03/26/20 03/27/20 06:59 06:59 06:59 Intake Total 3510 640 Balance 3510 640 Weight 117.6 kg 119.6 kg General appearance: PRESENT: mild distress, morbidly obese Head exam: PRESENT: atraumatic, normocephalic Eye exam: PRESENT: EOMI, PERRLA Ear exam: PRESENT: normal external ear exam Mouth exam: PRESENT: moist Neck exam: PRESENT: full ROM Respiratory exam: PRESENT: rales, symmetrical, tachypnea. ABSENT: wheezes Cardiovascular exam: PRESENT: RRR, +S1, +S2 Pulses: PRESENT: +2 pedal pulses bilateral GI/Abdominal exam: PRESENT: normal bowel sounds, soft. ABSENT: rebound, tenderness Extremities exam: PRESENT: full ROM Musculoskeletal exam: PRESENT: full ROM Neurological exam: PRESENT: alert, awake, oriented to person, oriented to place, oriented to time, oriented to situation Psychiatric exam: PRESENT: normal mood Skin exam: PRESENT: normal color Results Laboratory Results: 03/26/20 04:14 03/25/20 11:24 03/25/20 03/26/20 03/26/20 13:15 04:14 04:14 WBC 6.4 RBC 4.08 Hgb 11.8 L Hct 34.5 L MCV 85 MCH 29.0 MCHC 34.2 RDW 13.7 Plt Count 253 Seg Neutrophils % 79.0 H Lactic Acid 1.2 Magnesium 2.3 03/25/20 03/25/20 06:01 06:01 Creatine Kinase 55 Troponin I < 0.012 Impressions: Chest X-Ray 03/25/20 07:02 IMPRESSION: Patchy bilateral lung parenchymal airspace disease worrisome for mu ltifocal pneumonia Assessment and Plan - Diagnosis (1) Pneumonia due to 2019 novel coronavirus Is this a current diagnosis for this admission?: Yes Plan: Positive COVID test 03/15/2020 with CXR supporting pneumonia consistent with COVID. - on 2L NC - D-dimer, troponin and ferritin negative. - LDH (355) and CRP (71.3) elevated - Dexa 6 mg IV day 2 - Remdesivir D1 - Vit C, zinc, Vit D - O2 support as needed (2) Acute respiratory failure with hypoxia Is this a current diagnosis for this admission?: Yes Plan: - 2/2 to COVID pneumonia - continue O2 support at 2l NC increase as needed (3) Asthma Qualifiers: Asthma severity: mild Asthma persistence: intermittent Asthma complication type: uncomplicated Qualified Code(s): J45.20 - Mild intermittent asthma, uncomplicated Is this a current diagnosis for this admission?: Yes Plan: - History of mild, intermittent Asthma with increase in albuterol treatment to several times a day since COVID dx. -Treat symptoms with scheduled breathing treatments. (4) Hyponatremia Is this a current diagnosis for this admission?: Yes Plan: Hyponatremic 136.3. - will monitor (5) Hypokalemia Is this a current diagnosis for this admission?: Yes Plan: - resolved (6) Morbid obesity with BMI of 40.0-44.9, adult Is this a current diagnosis for this admission?: Yes Plan: -per recent studies obesity seems to be a poor prognostic factor for COVID - advised weight loss and diet with lifestyle modification (7) GERD (gastroesophageal reflux disease) Qualifiers: Esophagitis presence: without esophagitis Qualified Code(s): K21.9 - Gastro-esophageal reflux disease without esophagitis Is this a current diagnosis for this admission?: Yes Plan: Treated with PPI and H2 blockade daily. Resume home treatment regimen (8) HTN (hypertension) Qualifiers: Hypertension type: essential hypertension Qualified Code(s): I10 - Essential (primary) hypertension Is this a current diagnosis for this admission?: Yes Plan: HTN well controlled in the 120s/70s. Resume home treatment regimen. Monitor. - Time Time Spent with patient: 25-34 minutes Anticipated Discharge Disposition: Home, Self Care Anticipated Discharge Timeframe: to be determined
--- NOTE | 2020-03-26 12:45 | CDI QUERY ---
<ARIANA WHITNEY - Last Filed: 03/26/20 12:36> CDI Query CDI Review: Documentation in the Medical Record indicates this patient: Height: 5 ft 5 in Weight: 119.6 kg (263.12lbs) Calculated BMI: 43.8 The following is also documented in the Medical Record: General appearance: PRESENT: cooperative, obese, other - Moderate distress Based on your medical judgement, can you further clarify in the Progress Notes the diagnosis associated with these findings. Documentation of the patients BMI is required to capture these diansoses: Morbid Obesity / BMI 43.8 kg/m2 Overweight / BMI 43.8 kg/m2 Obesity / BMI 43.8 kg/m2 Other condition (please specify) None of the above / Not applicable Please note: Obesity is defined as: Class 1: BMI of 30 to < 35 Class 2: BMI of 35 to < 40 Class 3: BMI of > 40 (this is also defined as Morbid Obesity) Overweight: BMI 25 to < 30 Normal weight: BMI 18.5 to < 25 Thank you for your consideration. DOROTHY Antonio RN Clinical [employer]ker Physician Advisor [email or web address] <TRUNG NUNEZ - Last Filed: 03/29/20 18:05> CDI Query CDI Review: Patient has morbid obesity BMI >46.7 Agree with Query: Yes
[2020-03-26] MEDS: GUAIFENESIN/CODEINE PHOS 100-10 MG/ 5 ML UDC PO PRN (14:16)
[2020-03-26] MEDS: MELATONIN 3 MG TABLET PO SCH (21:12)
[2020-03-27] MEDS: PANTOPRAZOLE SODIUM 40 MG TABLET.DR PO SCH (05:17)
[2020-03-27] MEDS: GUAIFENESIN/CODEINE PHOS 100-10 MG/ 5 ML UDC PO PRN ×2 (05:23→21:58)
[2020-03-27 06:10] LABS: ABSOLUTE LYMPHOCYTES (AUTO) 1.4 10^3/uL (0.5-4.7); ABSOLUTE MONOCYTES (AUTO) 0.6 10^3/uL (0.1-1.4); ABSOLUTE NEUT (AUTO) 12.7 10^3/uL (1.7-8.2); BASOPHILS % (AUTO) 0.2 % (0-2); HEMATOCRIT 34.9 % (36.0-47.0); HEMOGLOBIN 11.4 g/dL (12.0-15.5); LYMPHOCYTES % (AUTO) 9.3 % (13-45); MEAN CORPUSCULAR HEMOGLOBIN 28.2 pg (27.0-33.4); MEAN CORPUSCULAR HGB CONC 32.7 g/dL (32.0-36.0); MEAN CORPUSCULAR VOLUME 86 fl (80-97); MONOCYTES % (AUTO) 4.4 % (3-13); PLATELET COUNT 319 10^3/uL (150-450); RED BLOOD COUNT 4.04 10^6/uL (3.72-5.28); RED CELL DISTRIBUTION WIDTH 13.6 % (11.5-14.0); SEGMENTED NEUTROPHILS % (AUTO) 86.1 % (42-78); TOTAL CELLS COUNTED % (AUTO) 100 %
[2020-03-27 06:13] LABS: WHITE BLOOD COUNT 14.8 10^3/uL (4.0-10.5)
[2020-03-27 07:18] LABS: C-REACTIVE PROTEIN 28.6 mg/L (<10.0)
[2020-03-27 07:50] LABS: FERRITIN 58.6 ng/mL (6.2-137.0)
[2020-03-27] MEDS ORDERED: NORMAL SALINE 250 ML IV PRN (09:16)
[2020-03-27] MEDS: IPRATROPIUM/ALBUTEROL 0.5-2.5 MG/3 ML AMPUL NEB SCH ×3 (09:18→20:55)
[2020-03-27] MEDS: ASCORBIC ACID 500 MG TABLET PO SCH ×2 (09:51→17:13)
[2020-03-27] MEDS: ALBUTEROL SULFATE HFA (90 MCG/PUFF) 8 GM MDI IH SCH ×4 (09:51→21:51)
[2020-03-27] MEDS: AZITHROMYCIN 250 MG TABLET PO SCH (09:51)
[2020-03-27] MEDS: DEXAMETHASONE SOD PHOS INJ 10 MG/1 ML VIAL IV SCH (09:51)
[2020-03-27] MEDS: REMDESIVIR (EUA) 100 MG in NORMAL SALINE 250 ML IV SCH (09:51)
[2020-03-27] MEDS: CHOLECALCIFEROL (D3) 1,000 UNIT (25 MCG) TABLET PO SCH (09:51)
[2020-03-27] MEDS: ASPIRIN 81 MG TABLET, CHEWABLE PO SCH (09:51)
[2020-03-27] MEDS: ZINC SULFATE 220 MG CAPSULE PO SCH (09:51)
[2020-03-27] MEDS: ENOXAPARIN SODIUM INJ 40 MG/0.4 ML DISP.SYRIN SUBCUT SCH (09:52)
[2020-03-27] MEDS: FLUOXETINE HCL 20 MG CAPSULE PO SCH (09:53)
[2020-03-27] MEDS ORDERED: (PENDING PHARMACY ID) (Pravastatin Sodium [Pravastatin Sodium] 40 MG) PO SCH (10:00)
[2020-03-27] MEDS: METOPROLOL TARTRATE 50 MG TABLET PO SCH ×2 (14:02→21:51)
--- NOTE | 2020-03-27 14:23 | PDOC PROGRESS REPORT ---
Subjective Progress Note for:: 03/27/20 Subjective:: JANI SEPULVEDA is a 40 year old female with past medical history of mild intermittent asthma, hypertension, GERD, HLD, anxiety and confirmed positive COVID-19 (03/15/2020) who reported to the emergency department today with concerns regarding x1 week history of increasing shortness of breath. Reports associated fevers, chills, generalized weakness, chest wall pain, palpitations, cough, postutssive emesis, and NVD. Symptoms treated with cough syrup and increased use/frequency of albuterol. Symptoms have progressively increased in severity since onset and became intolerable last night which prompted her visit to the emergency department. Evaluation in the Emergency Department significant for tachycardia, tachypnea, O2 sat 88% on room air. She is afebrile with blood pressure in the 120/70s. Hypoxemic (pO2 60l.2) on ABG. Hyponatremic and hypokalemic on chemistry. CXR consistent with multifocal pneumonia. Troponin and D-dimer negative. Patient was placed on NC 3L and treated single dose methylprednisolone and IV fluids. She was subsequently admitted to the hospitalist service for further treatment and evaluation. D2 hospital stay 03/26/20. She was seen and examined at bedside. She reports that her breathing seems much worse today compared to yesterday, although her O2 requirements has not increased. She still reports having LBM. Appetite is fair, she is afebrile. She received her first dose of remdesivir today. D2 of dexamethasone. She is also D2 of zithromax. D3 hospital stay 03/27/20. She was seen and examined at bedside. Diarrhea has improved. However she complains of worsening SOB, O2 requirements at 2-3L. Appetite is fair. She is afebrile. She is on D2 Remdesivir, D3 dexamethasone, D3 zithromax. Convalescent plasma ordered today. I was able to talk to her Zenon about her current medical status. Reason For Visit: COVID Physical Exam Vital Signs: Temp Pulse Resp BP Pulse Ox 98.6 F 93 20 126/67 H 93 03/27/20 13:39 03/27/20 13:39 03/27/20 13:39 03/27/20 13:39 03/27/20 13:39 Intake & Output 03/26/20 03/27/20 03/28/20 06:59 06:59 06:59 Intake Total 3510 1118 187 Output Total 1700 Balance 3510 -582 187 Weight 119.6 kg 125.6 kg General appearance: PRESENT: mild distress Head exam: PRESENT: atraumatic, normocephalic Eye exam: PRESENT: EOMI, PERRLA Mouth exam: PRESENT: moist Neck exam: PRESENT: full ROM Respiratory exam: PRESENT: rales, symmetrical, tachypnea. ABSENT: unlabored, wheezes Cardiovascular exam: PRESENT: RRR, +S1, +S2 Pulses: PRESENT: +2 pedal pulses bilateral Vascular exam: PRESENT: normal capillary refill GI/Abdominal exam: PRESENT: normal bowel sounds, soft. ABSENT: rebound, tenderness Extremities exam: PRESENT: full ROM Musculoskeletal exam: PRESENT: full ROM Neurological exam: PRESENT: alert, awake, oriented to person, oriented to place, oriented to time Psychiatric exam: PRESENT: normal mood Skin exam: PRESENT: normal color Results Laboratory Results: 03/27/20 05:00 03/25/20 11:24 03/27/20 03/27/20 03/27/20 05:00 05:00 05:00 WBC 14.8 H D RBC 4.04 Hgb 11.4 L Hct 34.9 L MCV 86 MCH 28.2 MCHC 32.7 RDW 13.6 Plt Count 319 Seg Neutrophils % 86.1 H Magnesium 2.0 Ferritin 58.60 C-Reactive Protein 28.6 H Blood Type 03/27/20 10:32 WBC RBC Hgb Hct MCV MCH MCHC RDW Plt Count Seg Neutrophils % Magnesium Ferritin C-Reactive Protein Blood Type A POSITIVE 03/25/20 03/25/20 06:01 06:01 Creatine Kinase 55 Troponin I < 0.012 Impressions: Chest X-Ray 03/25/20 07:02 IMPRESSION: Patchy bilateral lung parenchymal airspace disease worrisome for m ultifocal pneumonia Assessment and Plan - Diagnosis (1) Pneumonia due to 2019 novel coronavirus Is this a current diagnosis for this admission?: Yes Plan: Positive COVID test 03/15/2020 with CXR supporting pneumonia consistent with COVID. - on 2L NC - D-dimer, troponin and ferritin negative. - LDH (355) and CRP (71.3) elevated - Dexa 6 mg IV day 3 - Remdesivir D2 - ordered 1 dose of Convalescent plasma. Patient consented - Vit C, zinc, Vit D - O2 support as needed (2) Acute respiratory failure with hypoxia Is this a current diagnosis for this admission?: Yes Plan: - 2/2 to COVID pneumonia - continue O2 support at 2l NC increase as needed (3) Asthma Qualifiers: Asthma severity: mild Asthma persistence: intermittent Asthma complication type: uncomplicated Qualified Code(s): J45.20 - Mild intermittent asthma, uncomplicated Is this a current diagnosis for this admission?: Yes Plan: History of mild, intermittent Asthma with increase in albuterol treatment to several times a day since COVID dx. Treat symptoms with scheduled breathing treatments. - duoneb PRN (4) Hyponatremia Is this a current diagnosis for this admission?: Yes Plan: Hyponatremic 136.3. - IV fluids stopped - will monitor daily (5) Hypokalemia Is this a current diagnosis for this admission?: Yes Plan: - resolved (6) Morbid obesity with BMI of 40.0-44.9, adult Is this a current diagnosis for this admission?: Yes Plan: -per recent studies obesity seems to be a poor prognostic factor for COVID - advised weight loss and diet with lifestyle modification (7) GERD (gastroesophageal reflux disease) Qualifiers: Esophagitis presence: without esophagitis Qualified Code(s): K21.9 - Gastro-esophageal reflux disease without esophagitis Is this a current diagnosis for this admission?: Yes Plan: Treated with PPI and H2 blockade daily. Resume home treatment regimen (8) HTN (hypertension) Qualifiers: Hypertension type: essential hypertension Qualified Code(s): I10 - Essential (primary) hypertension Is this a current diagnosis for this admission?: Yes Plan: HTN well controlled in the 120s/70s. Resume home treatment regimen. Monitor. - Time Time Spent with patient: 35 or more minutes Medications reviewed and adjusted accordingly: Yes Anticipated Discharge Disposition: Home, Self Care Anticipated Discharge Timeframe: to be determined
--- NOTE | 2020-03-27 14:33 | ADVANCED CARE ---
- Diagnosis (1) Pneumonia due to 2019 novel coronavirus Diagnosis Current: Yes (2) Acute respiratory failure with hypoxia Diagnosis Current: Yes (3) Asthma Diagnosis Current: Yes (4) Hyponatremia Diagnosis Current: Yes (5) Hypokalemia Diagnosis Current: Yes (6) Morbid obesity with BMI of 40.0-44.9, adult Diagnosis Current: Yes (7) GERD (gastroesophageal reflux disease) Diagnosis Current: Yes (8) HTN (hypertension) Diagnosis Current: Yes Attendance: Patient personally, over the phone Resuscitation Status: Full Code Discussion: I discussed with the patient her diagnosis, plan of treatment and likely prognosis. She seems to be getting worse in terms of her breathing status. We talked about the high likelihood that she can get worse in light of her history of asthma and morbid obesity and the possibility that if her Pneumonia progresses she might need intubation and mechanical ventilation. We also discussed the possibility of having a feeding tube for nutrition. She affirms her code status of FULL code and is agreeable to feeding tubes should she need it. She also appointed her as her HCPOA, no paper works filled. She expressed that she is scared and concerned and is hopeful she does not reach the point of needing intubation. Care Planning Goals: Affirmed FULL CODE status. Prognosis discussed Document(s) Completed: none Time Spent: <30 min but >16 min
[2020-03-27] MEDS: MELATONIN 3 MG TABLET PO SCH (21:51)
[2020-03-27] MEDS: ATORVASTATIN CALCIUM 10 MG TABLET PO SCH (21:51)
[2020-03-28] MEDS: ALBUTEROL SULFATE HFA (90 MCG/PUFF) 8 GM MDI IH SCH ×6 (02:01→21:21)
[2020-03-28] MEDS: PANTOPRAZOLE SODIUM 40 MG TABLET.DR PO SCH (05:06)
[2020-03-28] MEDS: OXYCODONE-ACETAMINOPHEN 5-325 MG TABLET PO PRN (05:37)
[2020-03-28] MEDS: METOPROLOL TARTRATE 50 MG TABLET PO SCH ×3 (06:42→21:12)
[2020-03-28 07:04] LABS: HEMATOCRIT 31.3 % (36.0-47.0); HEMOGLOBIN 10.7 g/dL (12.0-15.5); MEAN CORPUSCULAR HEMOGLOBIN 29.2 pg (27.0-33.4); MEAN CORPUSCULAR HGB CONC 34.4 g/dL (32.0-36.0); MEAN CORPUSCULAR VOLUME 85 fl (80-97); PLATELET COUNT 338 10^3/uL (150-450); RED BLOOD COUNT 3.68 10^6/uL (3.72-5.28); RED CELL DISTRIBUTION WIDTH 13.9 % (11.5-14.0); WHITE BLOOD COUNT 10.1 10^3/uL (4.0-10.5)
[2020-03-28 07:17] LABS: ALBUMIN 2.7 g/dL (3.5-5.0); ALKALINE PHOSPHATASE 65 U/L (38-126); ANION GAP 7 (5-19); ASPARTATE AMINO TRANSFERASE 21 U/L (14-36); BILIRUBIN,DIRECT 0.2 mg/dL (0.0-0.4); BILIRUBIN,TOTAL 0.3 mg/dL (0.2-1.3); BLOOD UREA NITROGEN 22 mg/dL (7-20); CALCIUM 8.4 mg/dL (8.4-10.2); CARBON DIOXIDE 24 mmol/L (22-30); CHLORIDE 108 mmol/L (98-107); GLUCOSE 108 mg/dL (75-110); POTASSIUM 3.7 mmol/L (3.6-5.0); TOTAL PROTEIN 5.4 g/dL (6.3-8.2)
[2020-03-28 07:32] LABS: ABSOLUTE LYMPHOCYTES# (MANUAL) 1.4 10^3/uL (0.5-4.7); ABSOLUTE MONOCYTES # (MANUAL) 0.4 10^3/uL (0.1-1.4); BAND NEUTROPHILS % (MANUAL) 2 % (3-5); BASOPHILS % (MANUAL) 0 % (0-2); EOSINOPHILS % (MANUAL) 0 % (0-6); LYMPHOCYTES % (MANUAL) 14 % (13-45); MONOCYTES % (MANUAL) 4 % (3-13); NUCLEATED RED BLOOD CELLS 1 /100 WBC (0); SEGMENTED NEUTROPHILS % (MAN) 80 % (42-78); TOTAL CELLS COUNTED 100
[2020-03-28 07:33] LABS: PLATELET COMMENT ADEQUATE; RBC MORPHOLOGY COMMENT NORMO-CYTIC/CHROMIC; TOXIC GRANULATION 1+
[2020-03-28] MEDS ORDERED: INFLUENZA QUAD (6MOS+) 2020-21 VAC 0.5 ML SYR IM ONE (08:00)
[2020-03-28] MEDS: FLUOXETINE HCL 20 MG CAPSULE PO SCH (08:04)
[2020-03-28] MEDS: IPRATROPIUM/ALBUTEROL 0.5-2.5 MG/3 ML AMPUL NEB SCH ×3 (08:58→21:00)
[2020-03-28] MEDS: ZINC SULFATE 220 MG CAPSULE PO SCH (10:01)
[2020-03-28] MEDS: ASCORBIC ACID 500 MG TABLET PO SCH ×2 (10:01→17:12)
[2020-03-28] MEDS: CHOLECALCIFEROL (D3) 1,000 UNIT (25 MCG) TABLET PO SCH (10:01)
[2020-03-28] MEDS: ASPIRIN 81 MG TABLET, CHEWABLE PO SCH (10:01)
[2020-03-28] MEDS: REMDESIVIR (EUA) 100 MG in NORMAL SALINE 250 ML IV SCH (10:02)
[2020-03-28] MEDS: AZITHROMYCIN 250 MG TABLET PO SCH (10:02)
[2020-03-28] MEDS: ENOXAPARIN SODIUM INJ 40 MG/0.4 ML DISP.SYRIN SUBCUT SCH (10:02)
[2020-03-28] MEDS: DEXAMETHASONE SOD PHOS INJ 10 MG/1 ML VIAL IV SCH (10:03)
--- NOTE | 2020-03-28 11:36 | PDOC PROGRESS REPORT ---
Subjective Progress Note for:: 03/28/20 Subjective:: JANI SEPULVEDA is a 40 year old female with past medical history of mild intermittent asthma, hypertension, GERD, HLD, anxiety and confirmed positive COVID-19 (03/15/2020) who reported to the emergency department today with concerns regarding x1 week history of increasing shortness of breath. Reports associated fevers, chills, generalized weakness, chest wall pain, palpitations, cough, postutssive emesis, and NVD. Symptoms treated with cough syrup and increased use/frequency of albuterol. Symptoms have progressively increased in severity since onset and became intolerable last night which prompted her visit to the emergency department. Evaluation in the Emergency Department significant for tachycardia, tachypnea, O2 sat 88% on room air. She is afebrile with blood pressure in the 120/70s. Hypoxemic (pO2 60l.2) on ABG. Hyponatremic and hypokalemic on chemistry. CXR consistent with multifocal pneumonia. Troponin and D-dimer negative. Patient was placed on NC 3L and treated single dose methylprednisolone and IV fluids. She was subsequently admitted to the hospitalist service for further treatment and evaluation. D2 hospital stay 03/26/20. She was seen and examined at bedside. She reports that her breathing seems much worse today compared to yesterday, although her O2 requirements has not increased. She still reports having LBM. Appetite is fair, she is afebrile. She received her first dose of remdesivir today. D2 of dexamethasone. She is also D2 of zithromax. D3 hospital stay 03/27/20. She was seen and examined at bedside. Diarrhea has improved. However she complains of worsening SOB, O2 requirements at 2-3L. Appetite is fair. She is afebrile. She is on D2 Remdesivir, D3 dexamethasone, D3 zithromax. Convalescent plasma ordered today. I was able to talk to her Zenon about her current medical status. D4 hospital stay 03/28/20. She was seen and examined at bedside. She complains of abdominal cramps, no nausea/vomiting. Diarrhea resolved. She feels that her breathing has marginally improved. Per nurse, she was noted to be bradycardic to high 40s procurement technician, per patient she felt that her heart was skipping beats. Tele monitor reviewed. She did have an episode of bradycardia at around 4 am today. BP remained stable. I have decreased her metoprolol to 25 BID from 50 q8. She is on D3 Remdesivir, D4 dexa, D4 zithromax. Reason For Visit: COVID Physical Exam Vital Signs: Temp Pulse Resp BP Pulse Ox 97.8 F 68 16 137/76 H 96 03/28/20 08:50 03/28/20 08:58 03/28/20 08:58 03/28/20 08:21 03/28/20 08:58 Intake & Output 03/27/20 03/28/20 03/29/20 06:59 06:59 06:59 Intake Total 2118 437 250 Output Total 1700 Balance 418 437 250 Weight 125.6 kg 125.9 kg General appearance: PRESENT: cooperative, mild distress Head exam: PRESENT: atraumatic, normocephalic Eye exam: PRESENT: EOMI, PERRLA Ear exam: PRESENT: normal external ear exam Mouth exam: PRESENT: moist Neck exam: PRESENT: full ROM Respiratory exam: PRESENT: rales, symmetrical, unlabored. ABSENT: tachypnea, wheezes Cardiovascular exam: PRESENT: RRR, +S1, +S2 GI/Abdominal exam: PRESENT: normal bowel sounds, soft. ABSENT: rebound, tenderness Extremities exam: PRESENT: full ROM Musculoskeletal exam: PRESENT: full ROM Neurological exam: PRESENT: alert, awake, oriented to person, oriented to place, oriented to time Psychiatric exam: PRESENT: normal mood Skin exam: PRESENT: normal color Results Laboratory Results: 03/28/20 06:16 03/28/20 06:16 03/27/20 03/28/20 03/28/20 10:32 06:16 06:16 WBC 10.1 RBC 3.68 L Hgb 10.7 L Hct 31.3 L MCV 85 MCH 29.2 MCHC 34.4 RDW 13.9 Plt Count 338 Seg Neutrophils % Not Reportable Sodium 139.3 Potassium 3.7 Chloride 108 H Carbon Dioxide 24 Anion Gap 7 BUN 22 H Creatinine 0.58 Est GFR ( Amer) > 60 Glucose 108 Calcium 8.4 Magnesium 2.0 Total Bilirubin 0.3 AST 21 Alkaline Phosphatase 65 Total Protein 5.4 L Albumin 2.7 L Blood Type A POSITIVE 03/25/20 03/25/20 06:01 06:01 Creatine Kinase 55 Troponin I < 0.012 Impressions: Chest X-Ray 03/25/20 07:02 IMPRESSION: Patchy bilateral lung parenchymal airspace disease worrisome for multifocal pneumonia Assessment and Plan - Diagnosis (1) Acute respiratory failure with hypoxia Is this a current diagnosis for this admission?: Yes Plan: -2/2 to COVID pneumonia - continue O2 support at 2L NC increase as needed (2) Pneumonia due to 2019 novel coronavirus Is this a current diagnosis for this admission?: Yes Plan: Positive COVID test 03/15/2020 with CXR supporting pneumonia consistent with COVID. - on 2L NC - D-dimer, troponin and ferritin negative. - LDH 355 and CRP 71.3>28.6 elevated - Dexa 6 mg IV day 4 - Remdesivir D3 - s/p 1 unit convalescent plasma - Vit C, zinc, Vit D - O2 support as needed (3) Asthma Qualifiers: Asthma severity: mild Asthma persistence: intermittent Asthma complication type: uncomplicated Qualified Code(s): J45.20 - Mild intermittent asthma, uncomplicated Is this a current diagnosis for this admission?: Yes Plan: History of mild, intermittent Asthma with increase in albuterol treatment to several times a day since COVID dx. Treat symptoms with scheduled breathing treatments. - duoneb PRN (4) Hyponatremia Is this a current diagnosis for this admission?: Yes Plan: - resolved - IV fluids stopped - will monitor daily (5) Hypokalemia Is this a current diagnosis for this admission?: Yes Plan: - resolved (6) Morbid obesity with BMI of 40.0-44.9, adult Is this a current diagnosis for this admission?: Yes Plan: -per recent studies obesity seems to be a poor prognostic factor for COVID - advised weight loss and diet with lifestyle modification (7) GERD (gastroesophageal reflux disease) Qualifiers: Esophagitis presence: without esophagitis Qualified Code(s): K21.9 - Gastro-esophageal reflux disease without esophagitis Is this a current diagnosis for this admission?: Yes Plan: Treated with PPI and H2 blockade daily. Resume home treatment regimen (8) HTN (hypertension) Qualifiers: Hypertension type: essential hypertension Qualified Code(s): I10 - Essential (primary) hypertension Is this a current diagnosis for this admission?: Yes Plan: HTN well controlled in the 120s/70s. Resume home treatment regimen. Monitor. 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
[2020-03-28] MEDS: ATORVASTATIN CALCIUM 10 MG TABLET PO SCH (21:12)
[2020-03-28] MEDS: MELATONIN 3 MG TABLET PO SCH (21:14)
[2020-03-29] MEDS: ALBUTEROL SULFATE HFA (90 MCG/PUFF) 8 GM MDI IH SCH ×6 (02:37→22:01)
[2020-03-29 05:35] LABS: HEMATOCRIT 32.8 % (36.0-47.0); HEMOGLOBIN 11.1 g/dL (12.0-15.5); MEAN CORPUSCULAR HEMOGLOBIN 28.9 pg (27.0-33.4); MEAN CORPUSCULAR VOLUME 85 fl (80-97); PLATELET COUNT 355 10^3/uL (150-450); RED BLOOD COUNT 3.86 10^6/uL (3.72-5.28); RED CELL DISTRIBUTION WIDTH 14.1 % (11.5-14.0); WHITE BLOOD COUNT 9.9 10^3/uL (4.0-10.5)
[2020-03-29 05:50] LABS: ALBUMIN 2.7 g/dL (3.5-5.0); ALKALINE PHOSPHATASE 65 U/L (38-126); ANION GAP 7 (5-19); ASPARTATE AMINO TRANSFERASE 21 U/L (14-36); BILIRUBIN,DIRECT 0.2 mg/dL (0.0-0.4); BILIRUBIN,TOTAL 0.3 mg/dL (0.2-1.3); BLOOD UREA NITROGEN 24 mg/dL (7-20); CALCIUM 8.6 mg/dL (8.4-10.2); CARBON DIOXIDE 25 mmol/L (22-30); CHLORIDE 106 mmol/L (98-107); GLUCOSE 121 mg/dL (75-110); TOTAL PROTEIN 5.4 g/dL (6.3-8.2)
[2020-03-29 06:13] LABS: ABSOLUTE LYMPHOCYTES# (MANUAL) 2.4 10^3/uL (0.5-4.7); BASOPHILS % (MANUAL) 0 % (0-2); EOSINOPHILS % (MANUAL) 0 % (0-6); LYMPHOCYTES % (MANUAL) 24 % (13-45); MONOCYTES % (MANUAL) 10 % (3-13); SEGMENTED NEUTROPHILS % (MAN) 66 % (42-78); TOTAL CELLS COUNTED 100
[2020-03-29 06:15] LABS: OVALOCYTES SLIGHT; PLATELET COMMENT ADEQUATE; POIKILOCYTOSIS SLIGHT; POLYCHROMASIA SLIGHT; TOXIC GRANULATION 1+
[2020-03-29] MEDS: PANTOPRAZOLE SODIUM 40 MG TABLET.DR PO SCH (06:28)
[2020-03-29] MEDS: IPRATROPIUM/ALBUTEROL 0.5-2.5 MG/3 ML AMPUL NEB SCH ×3 (07:34→20:42)
[2020-03-29] MEDS: CHOLECALCIFEROL (D3) 1,000 UNIT (25 MCG) TABLET PO SCH (10:23)
[2020-03-29] MEDS: ASPIRIN 81 MG TABLET, CHEWABLE PO SCH (10:23)
[2020-03-29] MEDS: FLUOXETINE HCL 20 MG CAPSULE PO SCH (10:23)
[2020-03-29] MEDS: ASCORBIC ACID 500 MG TABLET PO SCH ×2 (10:23→18:00)
[2020-03-29] MEDS: METOPROLOL TARTRATE 50 MG TABLET PO SCH ×2 (10:23→22:00)
[2020-03-29] MEDS: ZINC SULFATE 220 MG CAPSULE PO SCH (10:23)
[2020-03-29] MEDS: DEXAMETHASONE SOD PHOS INJ 10 MG/1 ML VIAL IV SCH (10:24)
[2020-03-29] MEDS: ENOXAPARIN SODIUM INJ 40 MG/0.4 ML DISP.SYRIN SUBCUT SCH (10:24)
[2020-03-29] MEDS: REMDESIVIR (EUA) 100 MG in NORMAL SALINE 250 ML IV SCH (10:27)
--- NOTE | 2020-03-29 11:33 | PDOC PROGRESS REPORT ---
Subjective Progress Note for:: 03/29/20 Subjective:: JANI SEPULVEDA is a 40 year old female with past medical history of mild intermittent asthma, hypertension, GERD, HLD, anxiety and confirmed positive COVID-19 (03/15/2020) who reported to the emergency department today with concerns regarding x1 week history of increasing shortness of breath. Reports associated fevers, chills, generalized weakness, chest wall pain, palpitations, cough, postutssive emesis, and NVD. Symptoms treated with cough syrup and increased use/frequency of albuterol. Symptoms have progressively increased in severity since onset and became intolerable last night which prompted her visit to the emergency department. Evaluation in the Emergency Department significant for tachycardia, tachypnea, O2 sat 88% on room air. She is afebrile with blood pressure in the 120/70s. Hypoxemic (pO2 60l.2) on ABG. Hyponatremic and hypokalemic on chemistry. CXR consistent with multifocal pneumonia. Troponin and D-dimer negative. Patient was placed on NC 3L and treated single dose methylprednisolone and IV fluids. She was subsequently admitted to the hospitalist service for further treatment and evaluation. D2 hospital stay 03/26/20. She was seen and examined at bedside. She reports that her breathing seems much worse today compared to yesterday, although her O2 requirements has not increased. She still reports having LBM. Appetite is fair, she is afebrile. She received her first dose of remdesivir today. D2 of dexamethasone. She is also D2 of zithromax. D3 hospital stay 03/27/20. She was seen and examined at bedside. Diarrhea has improved. However she complains of worsening SOB, O2 requirements at 2-3L. Appetite is fair. She is afebrile. She is on D2 Remdesivir, D3 dexamethasone, D3 zithromax. Convalescent plasma ordered today. I was able to talk to her Zenon about her current medical status. D4 hospital stay 03/28/20. She was seen and examined at bedside. She complains of abdominal cramps, no nausea/vomiting. Diarrhea resolved. She feels that her breathing has marginally improved. Per nurse, she was noted to be bradycardic to high 40s superintendent warehouse, per patient she felt that her heart was skipping beats. Tele monitor reviewed. She did have an episode of bradycardia at around 4 am today. BP remained stable. I have decreased her metoprolol to 25 BID from 50 q8. She is on D3 Remdesivir, D4 dexa, D4 zithromax. D5 hospital stay 03/29/20. She was seen and examined at bedside. She is still on 2-3L of nasal cannula but needs have not increased. SOB has improved, no diarrhea. She is afebrile with improving appetite. She is on D4 Remdesivir , D5 dexa and D5 zithromax. Bradycardia has improved. She denies any chest pain, but she does have occasional palpitations. Reason For Visit: COVID Physical Exam Vital Signs: Temp Pulse Resp BP Pulse Ox 98.0 F 52 L 16 141/69 H 97 03/29/20 07:37 03/29/20 07:37 03/29/20 07:37 03/29/20 07:37 03/29/20 07:37 Intake & Output 03/28/20 03/29/20 03/30/20 06:59 06:59 06:59 Intake Total 437 730 Balance 437 730 Weight 125.9 kg 127.3 kg Results Laboratory Results: 03/29/20 05:09 03/29/20 05:09 03/29/20 03/29/20 05:09 05:09 WBC 9.9 RBC 3.86 Hgb 11.1 L Hct 32.8 L MCV 85 MCH 28.9 MCHC 34.0 RDW 14.1 H Plt Count 355 Seg Neutrophils % Not Reportable Sodium 138.4 Potassium 4.0 Chloride 106 Carbon Dioxide 25 Anion Gap 7 BUN 24 H Creatinine 0.58 Est GFR ( Amer) > 60 Glucose 121 H Calcium 8.6 Ferritin 41.50 Total Bilirubin 0.3 AST 21 Alkaline Phosphatase 65 Total Protein 5.4 L Albumin 2.7 L 03/25/20 03/25/20 06:01 06:01 Creatine Kinase 55 Troponin I < 0.012 Impressions: Chest X-Ray 03/25/20 07:02 IMPRESSION: Patchy bilateral lung parenchymal airspace disease worrisome for multifocal pneumonia Assessment and Plan - Diagnosis (1) Acute respiratory failure with hypoxia Is this a current diagnosis for this admission?: Yes Plan: -2/2 to COVID pneumonia - continue O2 support at 2L NC increase as needed (2) Pneumonia due to 2019 novel coronavirus Is this a current diagnosis for this admission?: Yes Plan: Positive COVID test 03/15/2020 with CXR supporting pneumonia consistent with COVID. - on 2L NC - D-dimer, troponin and ferritin negative. - LDH 355 and CRP 71.3>28.6 elevated - Dexa 6 mg IV day 5 - Remdesivir D4 - s/p 1 unit convalescent plasma - Vit C, zinc, Vit D - O2 support as needed (3) Asthma Qualifiers: Asthma severity: mild Asthma persistence: intermittent Asthma complication type: uncomplicated Qualified Code(s): J45.20 - Mild intermittent asthma, uncomplicated Is this a current diagnosis for this admission?: Yes Plan: - History of mild, intermittent Asthma with increase in albuterol treatment to several times a day since COVID dx. - Treat symptoms with scheduled breathing treatments. - duoneb PRN (4) Hyponatremia Is this a current diagnosis for this admission?: Yes Plan: - resolved - IV fluids stopped - will monitor daily (5) Hypokalemia Is this a current diagnosis for this admission?: Yes Plan: - resolved (6) Morbid obesity with BMI of 40.0-44.9, adult Is this a current diagnosis for this admission?: Yes Plan: -per recent studies obesity seems to be a poor prognostic factor for COVID - advised weight loss and diet with lifestyle modification (7) GERD (gastroesophageal reflux disease) Qualifiers: Esophagitis presence: without esophagitis Qualified Code(s): K21.9 - Gastro-esophageal reflux disease without esophagitis Is this a current diagnosis for this admission?: Yes Plan: Treated with PPI and H2 blockade daily. Resume home treatment regimen (8) HTN (hypertension) Qualifiers: Hypertension type: essential hypertension Qualified Code(s): I10 - Essential (primary) hypertension Is this a current diagnosis for this admission?: Yes Plan: HTN well controlled in the 120s/70s. Resume home treatment regimen. Monitor. 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
--- NOTE | 2020-03-29 13:00 | EKG REPORT ---
SEVERITY:- BORDERLINE ECG - SINUS RHYTHM INFERIOR Q WAVES, PROBABLY NORMAL VARIATION BORDERLINE T ABNORMALITIES, ANTERIOR LEADS : Confirmed by: Inder Brock MD 29-Mar-2020 12:59:16
[2020-03-29] MEDS: MELATONIN 3 MG TABLET PO SCH (21:58)
[2020-03-29] MEDS: OXYCODONE-ACETAMINOPHEN 5-325 MG TABLET PO PRN (21:58)
[2020-03-29] MEDS: ATORVASTATIN CALCIUM 10 MG TABLET PO SCH (22:00)
[2020-03-30] MEDS: ALBUTEROL SULFATE HFA (90 MCG/PUFF) 8 GM MDI IH SCH ×6 (02:00→21:10)
[2020-03-30 06:00] LABS: HEMATOCRIT 32.8 % (36.0-47.0); HEMOGLOBIN 11.1 g/dL (12.0-15.5); MEAN CORPUSCULAR HEMOGLOBIN 28.9 pg (27.0-33.4); MEAN CORPUSCULAR HGB CONC 33.9 g/dL (32.0-36.0); MEAN CORPUSCULAR VOLUME 85 fl (80-97); PLATELET COUNT 352 10^3/uL (150-450); RED BLOOD COUNT 3.85 10^6/uL (3.72-5.28); RED CELL DISTRIBUTION WIDTH 13.3 % (11.5-14.0)
[2020-03-30 06:12] LABS: ALBUMIN 2.6 g/dL (3.5-5.0); ALKALINE PHOSPHATASE 60 U/L (38-126); ANION GAP 6 (5-19); ASPARTATE AMINO TRANSFERASE 20 U/L (14-36); BILIRUBIN,DIRECT 0.2 mg/dL (0.0-0.4); BILIRUBIN,TOTAL 0.3 mg/dL (0.2-1.3); BLOOD UREA NITROGEN 22 mg/dL (7-20); CALCIUM 8.2 mg/dL (8.4-10.2); CARBON DIOXIDE 23 mmol/L (22-30); CHLORIDE 106 mmol/L (98-107); GLUCOSE 126 mg/dL (75-110); NEONATAL BILIRUBIN RESULT 0.2 mg/dL (0.1-1.1); POTASSIUM 4.2 mmol/L (3.6-5.0); TOTAL PROTEIN 5.2 g/dL (6.3-8.2)
[2020-03-30 06:42] LABS: ABSOLUTE LYMPHOCYTES# (MANUAL) 1.7 10^3/uL (0.5-4.7); ABSOLUTE MONOCYTES # (MANUAL) 0.7 10^3/uL (0.1-1.4); BASOPHILS % (MANUAL) 0 % (0-2); EOSINOPHILS % (MANUAL) 0 % (0-6); LYMPHOCYTES % (MANUAL) 17 % (13-45); MONOCYTES % (MANUAL) 7 % (3-13); SEGMENTED NEUTROPHILS % (MAN) 76 % (42-78); TOTAL CELLS COUNTED 100
[2020-03-30 06:43] LABS: PLATELET COMMENT ADEQUATE; RBC MORPHOLOGY COMMENT NORMO-CYTIC/CHROMIC; TOXIC GRANULATION 1+
[2020-03-30] MEDS: IPRATROPIUM/ALBUTEROL 0.5-2.5 MG/3 ML AMPUL NEB SCH ×3 (08:55→20:18)
[2020-03-30] MEDS: ENOXAPARIN SODIUM INJ 40 MG/0.4 ML DISP.SYRIN SUBCUT SCH (09:06)
[2020-03-30] MEDS: ASCORBIC ACID 500 MG TABLET PO SCH ×2 (09:06→17:07)
[2020-03-30] MEDS: ASPIRIN 81 MG TABLET, CHEWABLE PO SCH (09:06)
[2020-03-30] MEDS: DEXAMETHASONE SOD PHOS INJ 10 MG/1 ML VIAL IV SCH (09:06)
[2020-03-30] MEDS: CHOLECALCIFEROL (D3) 1,000 UNIT (25 MCG) TABLET PO SCH (09:06)
[2020-03-30] MEDS: PANTOPRAZOLE SODIUM 40 MG TABLET.DR PO SCH (09:06)
[2020-03-30] MEDS: ZINC SULFATE 220 MG CAPSULE PO SCH (09:06)
[2020-03-30] MEDS: FLUOXETINE HCL 20 MG CAPSULE PO SCH (09:06)
--- NOTE | 2020-03-30 09:58 | PDOC PROGRESS REPORT ---
Subjective Progress Note for:: 03/30/20 Subjective:: JANI SEPULVEDA is a 40 year old female with past medical history of mild intermittent asthma, hypertension, GERD, HLD, anxiety and confirmed positive COVID-19 (03/15/2020) who reported to the emergency department today with concerns regarding x1 week history of increasing shortness of breath. Reports associated fevers, chills, generalized weakness, chest wall pain, palpitations, cough, postutssive emesis, and NVD. Symptoms treated with cough syrup and increased use/frequency of albuterol. Symptoms have progressively increased in severity since onset and became intolerable last night which prompted her visit to the emergency department. Evaluation in the Emergency Department significant for tachycardia, tachypnea, O2 sat 88% on room air. She is afebrile with blood pressure in the 120/70s. Hypoxemic (pO2 60l.2) on ABG. Hyponatremic and hypokalemic on chemistry. CXR consistent with multifocal pneumonia. Troponin and D-dimer negative. Patient was placed on NC 3L and treated single dose methylprednisolone and IV fluids. She was subsequently admitted to the hospitalist service for further treatment and evaluation. D2 hospital stay 03/26/20. She was seen and examined at bedside. She reports that her breathing seems much worse today compared to yesterday, although her O2 requirements has not increased. She still reports having LBM. Appetite is fair, she is afebrile. She received her first dose of remdesivir today. D2 of dexamethasone. She is also D2 of zithromax. D3 hospital stay 03/27/20. She was seen and examined at bedside. Diarrhea has improved. However she complains of worsening SOB, O2 requirements at 2-3L. Appetite is fair. She is afebrile. She is on D2 Remdesivir, D3 dexamethasone, D3 zithromax. Convalescent plasma ordered today. I was able to talk to her Zenon about her current medical status. D4 hospital stay 03/28/20. She was seen and examined at bedside. She complains of abdominal cramps, no nausea/vomiting. Diarrhea resolved. She feels that her breathing has marginally improved. Per nurse, she was noted to be bradycardic to high 40s chicken raiser, per patient she felt that her heart was skipping beats. Tele monitor reviewed. She did have an episode of bradycardia at around 4 am today. BP remained stable. I have decreased her metoprolol to 25 BID from 50 q8. She is on D3 Remdesivir, D4 dexa, D4 zithromax. D5 hospital stay 03/29/20. She was seen and examined at bedside. She is still on 2-3L of nasal cannula but needs have not increased. SOB has improved, no diarrhea. She is afebrile with improving appetite. She is on D4 Remdesivir , D5 dexa and D5 zithromax. Bradycardia has improved. She denies any chest pain, but she does have occasional palpitations. D6 hospital stay 03/30/20. She was seen and examined at bedside. She reports improvement of her breathing although she still feels SOB with ambulation. She also complains of midsternal pain which is sharp, non exertional. This is likely pleuritic from her pneumonia. EKG showed sinus bradycardia and troponin negative. She has completed her remdesivir treatment, on D5 of dexamethasone. Metoprolol was stopped for now due to persistent bradycardia. Reason For Visit: COVID Physical Exam Vital Signs: Temp Pulse Resp BP Pulse Ox 98.2 F 51 L 16 149/78 H 95 03/30/20 08:10 03/30/20 07:54 03/30/20 07:54 03/30/20 07:54 03/30/20 07:54 Intake & Output 03/29/20 03/30/20 03/31/20 06:59 06:59 06:59 Intake Total 730 750 Output Total 1100 Balance 730 -350 Weight 127.3 kg 126.2 kg General appearance: PRESENT: cooperative, mild distress, morbidly obese Head exam: PRESENT: atraumatic, normocephalic Eye exam: PRESENT: EOMI, PERRLA Mouth exam: PRESENT: moist Neck exam: PRESENT: full ROM Respiratory exam: PRESENT: rales, symmetrical, unlabored Cardiovascular exam: PRESENT: RRR, +S1, +S2 Pulses: PRESENT: +2 pedal pulses bilateral Vascular exam: PRESENT: normal capillary refill GI/Abdominal exam: PRESENT: normal bowel sounds, soft Extremities exam: PRESENT: full ROM Musculoskeletal exam: PRESENT: full ROM Neurological exam: PRESENT: alert, awake, oriented to person, oriented to place, oriented to time, oriented to situation Skin exam: PRESENT: normal color Results Laboratory Results: 03/30/20 05:30 03/30/20 05:30 03/30/20 03/30/20 05:30 05:30 WBC 10.0 RBC 3.85 Hgb 11.1 L Hct 32.8 L MCV 85 MCH 28.9 MCHC 33.9 RDW 13.3 Plt Count 352 Seg Neutrophils % Not Reportable Sodium 135.3 L Potassium 4.2 Chloride 106 Carbon Dioxide 23 Anion Gap 6 BUN 22 H Creatinine 0.54 Est GFR ( Amer) > 60 Glucose 126 H Calcium 8.2 L Total Bilirubin 0.3 AST 20 Alkaline Phosphatase 60 Total Protein 5.2 L Albumin 2.6 L 03/25/20 07:54 Blood Blood Culture - Final NO GROWTH IN 5 DAYS 03/25/20 03/25/20 03/29/20 06:01 06:01 05:09 Creatine Kinase 55 Troponin I < 0.012 < 0.012 Impressions: Chest X-Ray 03/25/20 07:02 IMPRESSION: Patchy bilateral lung parenchymal airspace disease worrisome for multifocal pneumonia Assessment and Plan - Diagnosis (1) Acute respiratory failure with hypoxia Is this a current diagnosis for this admission?: Yes Plan: -2/2 to COVID pneumonia - continue O2 support at 2L NC increase as needed (2) Pneumonia due to 2019 novel coronavirus Is this a current diagnosis for this admission?: Yes Plan: Positive COVID test 03/15/2020 with CXR supporting pneumonia consistent with COVID. - on 2L NC. Her breathing has improved but still needs O2 support. - D-dimer, troponin and ferritin negative. - LDH 355 and CRP 71.3>28.6 elevated - Dexa 6 mg IV day 6 - completed - s/p 1 unit convalescent plasma - Vit C, zinc, Vit D - O2 support as needed (3) Asthma Qualifiers: Asthma severity: mild Asthma persistence: intermittent Asthma complication type: uncomplicated Qualified Code(s): J45.20 - Mild intermittent asthma, uncomplicated Is this a current diagnosis for this admission?: Yes Plan: - History of mild, intermittent Asthma with increase in albuterol treatment to several times a day since COVID dx. - Treat symptoms with scheduled breathing treatments. - duoneb PRN (4) Hyponatremia Is this a current diagnosis for this admission?: Yes Plan: - resolved - IV fluids stopped - will monitor daily (5) Hypokalemia Is this a current diagnosis for this admission?: Yes Plan: - resolved (6) Morbid obesity with BMI of 40.0-44.9, adult Is this a current diagnosis for this admission?: Yes Plan: -per recent studies obesity seems to be a poor prognostic factor for COVID - advised weight loss and diet with lifestyle modification (7) GERD (gastroesophageal reflux disease) Qualifiers: Esophagitis presence: without esophagitis Qualified Code(s): K21.9 - Gastro-esophageal reflux disease without esophagitis Is this a current diagnosis for this admission?: Yes Plan: Treated with PPI and H2 blockade daily. Resume home treatment regimen (8) HTN (hypertension) Qualifiers: Hypertension type: essential hypertension Qualified Code(s): I10 - Essential (primary) hypertension Is this a current diagnosis for this admission?: Yes Plan: HTN well controlled in the 120s/70s. Resume home treatment regimen. Monitor. 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
[2020-03-30] MEDS: MELATONIN 3 MG TABLET PO SCH (21:09)
[2020-03-30] MEDS: OXYCODONE-ACETAMINOPHEN 5-325 MG TABLET PO PRN (21:09)
[2020-03-30] MEDS: ATORVASTATIN CALCIUM 10 MG TABLET PO SCH (21:10)
[2020-03-31] MEDS: PANTOPRAZOLE SODIUM 40 MG TABLET.DR PO SCH (06:03)
[2020-03-31] MEDS: ALBUTEROL SULFATE HFA (90 MCG/PUFF) 8 GM MDI IH SCH ×5 (06:03→17:00)
[2020-03-31 06:12] LABS: HEMATOCRIT 34.6 % (36.0-47.0); HEMOGLOBIN 11.6 g/dL (12.0-15.5); MEAN CORPUSCULAR HEMOGLOBIN 28.7 pg (27.0-33.4); MEAN CORPUSCULAR HGB CONC 33.5 g/dL (32.0-36.0); MEAN CORPUSCULAR VOLUME 86 fl (80-97); PLATELET COUNT 415 10^3/uL (150-450); RED BLOOD COUNT 4.04 10^6/uL (3.72-5.28); RED CELL DISTRIBUTION WIDTH 13.7 % (11.5-14.0); WHITE BLOOD COUNT 12.4 10^3/uL (4.0-10.5)
[2020-03-31 06:28] LABS: ALBUMIN 2.7 g/dL (3.5-5.0); ALKALINE PHOSPHATASE 59 U/L (38-126); ANION GAP 5 (5-19); ASPARTATE AMINO TRANSFERASE 19 U/L (14-36); BILIRUBIN,DIRECT 0.2 mg/dL (0.0-0.4); BILIRUBIN,TOTAL 0.3 mg/dL (0.2-1.3); BLOOD UREA NITROGEN 20 mg/dL (7-20); CALCIUM 8.5 mg/dL (8.4-10.2); CARBON DIOXIDE 22 mmol/L (22-30); CHLORIDE 109 mmol/L (98-107); GLUCOSE 120 mg/dL (75-110); POTASSIUM 4.6 mmol/L (3.6-5.0); TOTAL PROTEIN 5.5 g/dL (6.3-8.2)
[2020-03-31 07:06] LABS: ABSOLUTE LYMPHOCYTES# (MANUAL) 2.7 10^3/uL (0.5-4.7); ABSOLUTE MONOCYTES # (MANUAL) 0.4 10^3/uL (0.1-1.4); BASOPHILS % (MANUAL) 0 % (0-2); EOSINOPHILS % (MANUAL) 0 % (0-6); LYMPHOCYTES % (MANUAL) 22 % (13-45); MONOCYTES % (MANUAL) 3 % (3-13); PLATELET COMMENT ADEQUATE; SEGMENTED NEUTROPHILS % (MAN) 75 % (42-78); TOTAL CELLS COUNTED 100
[2020-03-31 07:07] LABS: OVALOCYTES SLIGHT; POLYCHROMASIA SLIGHT
[2020-03-31 07:08] LABS: SCHISTOCYTES SLIGHT
[2020-03-31] MEDS: FLUOXETINE HCL 20 MG CAPSULE PO SCH (07:51)
[2020-03-31] MEDS: IPRATROPIUM/ALBUTEROL 0.5-2.5 MG/3 ML AMPUL NEB SCH ×3 (08:50→20:03)
[2020-03-31] MEDS: ENOXAPARIN SODIUM INJ 40 MG/0.4 ML DISP.SYRIN SUBCUT SCH (09:25)
[2020-03-31] MEDS: CHOLECALCIFEROL (D3) 1,000 UNIT (25 MCG) TABLET PO SCH (09:25)
[2020-03-31] MEDS: ASPIRIN 81 MG TABLET, CHEWABLE PO SCH (09:25)
[2020-03-31] MEDS: ASCORBIC ACID 500 MG TABLET PO SCH ×2 (09:25→17:01)
[2020-03-31] MEDS: ZINC SULFATE 220 MG CAPSULE PO SCH (09:25)
[2020-03-31] MEDS: DEXAMETHASONE SOD PHOS INJ 10 MG/1 ML VIAL IV SCH (09:25)
--- NOTE | 2020-03-31 09:28 | PDOC PROGRESS REPORT ---
Subjective Progress Note for:: 03/31/20 Subjective:: JENNY SEPULVEDA is a 40 year old female with past medical history of mild intermittent asthma, hypertension, GERD, HLD, anxiety and confirmed positive COVID-19 (03/15/2020) who reported to the emergency department today with concerns regarding x1 week history of increasing shortness of breath. Reports associated fevers, chills, generalized weakness, chest wall pain, palpitations, cough, postutssive emesis, and NVD. Symptoms treated with cough syrup and increased use/frequency of albuterol. Symptoms have progressively increased in severity since onset and became intolerable last night which prompted her visit to the emergency department. Evaluation in the Emergency Department significant for tachycardia, tachypnea, O2 sat 88% on room air. She is afebrile with blood pressure in the 120/70s. Hypoxemic (pO2 60l.2) on ABG. Hyponatremic and hypokalemic on chemistry. CXR consistent with multifocal pneumonia. Troponin and D-dimer negative. Patient was placed on NC 3L and treated single dose methylprednisolone and IV fluids. She was subsequently admitted to the hospitalist service for further treatment and evaluation. D2 hospital stay 03/26/20. She was seen and examined at bedside. She reports that her breathing seems much worse today compared to yesterday, although her O2 requirements has not increased. She still reports having LBM. Appetite is fair, she is afebrile. She received her first dose of remdesivir today. D2 of dexamethasone. She is also D2 of zithromax. D3 hospital stay 03/27/20. She was seen and examined at bedside. Diarrhea has improved. However she complains of worsening SOB, O2 requirements at 2-3L. Appetite is fair. She is afebrile. She is on D2 Remdesivir, D3 dexamethasone, D3 zithromax. Convalescent plasma ordered today. I was able to talk to her Zenon about her current medical status. D4 hospital stay 03/28/20. She was seen and examined at bedside. She complains of abdominal cramps, no nausea/vomiting. Diarrhea resolved. She feels that her breathing has marginally improved. Per nurse, she was noted to be bradycardic to high 40s drier tender naphthalene, per patient she felt that her heart was skipping beats. Tele monitor reviewed. She did have an episode of bradycardia at around 4 am today. BP remained stable. I have decreased her metoprolol to 25 BID from 50 q8. She is on D3 Remdesivir, D4 dexa, D4 zithromax. D5 hospital stay 03/29/20. She was seen and examined at bedside. She is still on 2-3L of nasal cannula but needs have not increased. SOB has improved, no diarrhea. She is afebrile with improving appetite. She is on D4 Remdesivir , D5 dexa and D5 zithromax. Bradycardia has improved. She denies any chest pain, but she does have occasional palpitations. D6 hospital stay 03/30/20. She was seen and examined at bedside. She reports improvement of her breathing although she still feels SOB with ambulation. She also complains of midsternal pain which is sharp, non exertional. This is likely pleuritic from her pneumonia. EKG showed sinus bradycardia and troponin negative. She has completed her remdesivir treatment, on D5 of dexamethasone. Metoprolol was stopped for now due to persistent bradycardia. D7 Hospital stay 03/31/20. She was seen and examined at bedside. Breathing much better, complains of throat pain. Afebrile, good appetite, no diarrhea, no nausea/vomiting. No chest pain, no palpitations. I have told her that she can get off her Oxygen. Reason For Visit: COVID Physical Exam Vital Signs: Temp Pulse Resp BP Pulse Ox 97.6 F 83 16 182/95 H 97 03/31/20 07:31 03/31/20 07:00 03/31/20 06:59 03/31/20 06:59 03/31/20 06:59 Intake & Output 03/30/20 03/31/20 04/01/20 06:59 06:59 06:59 Intake Total 750 1358 Output Total 1100 2900 Balance -350 -1542 Weight 126.2 kg 125.6 kg General appearance: PRESENT: no acute distress, cooperative, morbidly obese Head exam: PRESENT: atraumatic, normocephalic Eye exam: PRESENT: EOMI Mouth exam: PRESENT: moist Neck exam: PRESENT: full ROM. ABSENT: JVD Respiratory exam: PRESENT: rhonchi, symmetrical, unlabored. ABSENT: crackles, tachypnea, wheezes Cardiovascular exam: PRESENT: RRR, +S1, +S2 Pulses: PRESENT: normal radial pulses GI/Abdominal exam: PRESENT: normal bowel sounds, soft. ABSENT: tenderness Extremities exam: PRESENT: full ROM Musculoskeletal exam: PRESENT: full ROM Neurological exam: PRESENT: alert, awake, oriented to person, oriented to place, oriented to time, oriented to situation Psychiatric exam: PRESENT: normal mood Skin exam: PRESENT: normal color Results Laboratory Results: 03/31/20 05:35 03/31/20 05:35 03/31/20 03/31/20 05:35 05:35 WBC 12.4 H RBC 4.04 Hgb 11.6 L Hct 34.6 L MCV 86 MCH 28.7 MCHC 33.5 RDW 13.7 Plt Count 415 Seg Neutrophils % Not Reportable Sodium 136.4 L Potassium 4.6 Chloride 109 H Carbon Dioxide 22 Anion Gap 5 BUN 20 Creatinine 0.60 Est GFR ( Amer) > 60 Glucose 120 H Calcium 8.5 Total Bilirubin 0.3 AST 19 Alkaline Phosphatase 59 Total Protein 5.5 L Albumin 2.7 L 03/25/20 10:06 Blood Blood Culture - Final NO GROWTH IN 5 DAYS 03/25/20 07:54 Blood Blood Culture - Final NO GROWTH IN 5 DAYS 03/25/20 03/25/20 03/29/20 06:01 06:01 05:09 Creatine Kinase 55 Troponin I < 0.012 < 0.012 Impressions: Chest X-Ray 03/25/20 07:02 IMPRESSION: Patchy bilateral lung parenchymal airspace disease worrisome for multifocal pneumonia Assessment and Plan - Diagnosis (1) Acute respiratory failure with hypoxia Is this a current diagnosis for this admission?: Yes Plan: -2/2 to COVID pneumonia - wean off O2 (2) Pneumonia due to 2019 novel coronavirus Is this a current diagnosis for this admission?: Yes Plan: Positive COVID test 03/15/2020 with CXR supporting pneumonia consistent with COVID. - off O2 saturating 95% on room air - D-dimer, troponin and ferritin negative. - LDH 355 and CRP 71.3>28.6 elevated - Dexa 6 mg IV day 7 - completed remdesivir - s/p 1 unit convalescent plasma - Vit C, zinc, Vit D - if completely off O2 she can be discharged. (3) Asthma Qualifiers: Asthma severity: mild Asthma persistence: intermittent Asthma complication type: uncomplicated Qualified Code(s): J45.20 - Mild intermittent asthma, uncomplicated Is this a current diagnosis for this admission?: Yes Plan: - History of mild, intermittent Asthma with increase in albuterol treatment to several times a day since COVID dx. - Treat symptoms with scheduled breathing treatments. - duoneb PRN (4) Hyponatremia Is this a current diagnosis for this admission?: Yes Plan: - resolved - IV fluids stopped - will monitor daily (5) Hypokalemia Is this a current diagnosis for this admission?: Yes Plan: - resolved (6) Morbid obesity with BMI of 40.0-44.9, adult Is this a current diagnosis for this admission?: Yes Plan: -per recent studies obesity seems to be a poor prognostic factor for COVID - advised weight loss and diet with lifestyle modification (7) GERD (gastroesophageal reflux disease) Qualifiers: Esophagitis presence: without esophagitis Qualified Code(s): K21.9 - Gastro-esophageal reflux disease without esophagitis Is this a current diagnosis for this admission?: Yes Plan: Treated with PPI and H2 blockade daily. Resume home treatment regimen (8) HTN (hypertension) Qualifiers: Hypertension type: essential hypertension Qualified Code(s): I10 - Essent ial (primary) hypertension Is this a current diagnosis for this admission?: Yes Plan: HTN well controlled in the 120s/70s. Resume home treatment regimen. Monitor. (9) Bradycardia Is this a current diagnosis for this admission?: Yes Plan: -HR down to high 40s drier tender naphthalene when patient was sleeping - BP stable - tele reviewed sinus bradycardia -lopressor held for now - continue Tele monitor - Plan Summary Summary: jenny Sepulveda is a 40/f, PMH of HTN, asthma, morbid obesity who was admitted due to confirmed COVID pneumonia. She initially required O2 support. She received the 5 day course of remdesivir, 1 dose of convalescent plasma and still on Dexa D7. She got about 5 days of zithromax stopped when blood cx were negative. She had episodes of asymptomatic bradycardia when her metoprolol was resumed. Metoprolol was held but this can be resumed at 50 BID on discharge hopefully by tomorrow. I do not think she would need to taper steroid when she is discharged tomorrow. - Time Time Spent with patient: 15-24 minutes Medications reviewed and adjusted accordingly: Yes Anticipated Discharge Disposition: Home, Self Care Anticipated Discharge Timeframe: within 48 hours
[2020-03-31] MEDS ORDERED: BENZOCAINE/MENTHOL SORE THROAT LOZENGE BUCCAL PRN (09:30)
--- NOTE | 2020-03-31 10:20 | RADIOLOGY REPORT (SQ) ---
EXAM DESCRIPTION: CHEST SINGLE VIEW IMAGES COMPLETED DATE/TIME: 03/31/2020 10:05 am REASON FOR STUDY: deconditioning COMPARISON: 03/25/2020 FINDINGS: One view AP portable upright. Low lung volumes. Suspect mild basilar subsegmental atelectasis. Doubt pneumonia. No overt congest bettie failure. No pneumothorax. TECHNICAL DOCUMENTATION: JOB ID: [id number] Reading location - IP/workstation name: [email or web address]
[2020-03-31] MEDS: OXYCODONE-ACETAMINOPHEN 5-325 MG TABLET PO PRN (21:50)
[2020-03-31] MEDS: ATORVASTATIN CALCIUM 10 MG TABLET PO SCH (21:50)
[2020-03-31] MEDS: GUAIFENESIN/CODEINE PHOS 100-10 MG/ 5 ML UDC PO PRN (21:50)
[2020-03-31] MEDS: MELATONIN 3 MG TABLET PO SCH (21:51)
[2020-04-01] MEDS: PANTOPRAZOLE SODIUM 40 MG TABLET.DR PO SCH (05:23)
[2020-04-01] MEDS: GUAIFENESIN/CODEINE PHOS 100-10 MG/ 5 ML UDC PO PRN (05:24)
[2020-04-01] MEDS: ALBUTEROL SULFATE HFA (90 MCG/PUFF) 8 GM MDI IH SCH ×4 (06:16→09:04)
[2020-04-01 06:40] LABS: HEMATOCRIT 33.5 % (36.0-47.0); HEMOGLOBIN 11.4 g/dL (12.0-15.5); MEAN CORPUSCULAR HEMOGLOBIN 29.1 pg (27.0-33.4); MEAN CORPUSCULAR HGB CONC 34.1 g/dL (32.0-36.0); MEAN CORPUSCULAR VOLUME 85 fl (80-97); PLATELET COUNT 414 10^3/uL (150-450); RED BLOOD COUNT 3.92 10^6/uL (3.72-5.28); RED CELL DISTRIBUTION WIDTH 14.3 % (11.5-14.0); WHITE BLOOD COUNT 12.8 10^3/uL (4.0-10.5)
[2020-04-01 07:05] LABS: ALBUMIN 2.8 g/dL (3.5-5.0); ALKALINE PHOSPHATASE 59 U/L (38-126); ANION GAP 8 (5-19); ASPARTATE AMINO TRANSFERASE 14 U/L (14-36); BILIRUBIN,DIRECT 0.2 mg/dL (0.0-0.4); BILIRUBIN,TOTAL 0.3 mg/dL (0.2-1.3); BLOOD UREA NITROGEN 20 mg/dL (7-20); CALCIUM 8.5 mg/dL (8.4-10.2); CARBON DIOXIDE 21 mmol/L (22-30); CHLORIDE 107 mmol/L (98-107); GLUCOSE 103 mg/dL (75-110); POTASSIUM 4.5 mmol/L (3.6-5.0); TOTAL PROTEIN 5.5 g/dL (6.3-8.2)
[2020-04-01 07:12] LABS: ABSOLUTE LYMPHOCYTES# (MANUAL) 2.8 10^3/uL (0.5-4.7); BASOPHILS % (MANUAL) 0 % (0-2); EOSINOPHILS % (MANUAL) 0 % (0-6); LYMPHOCYTES % (MANUAL) 22 % (13-45); METAMYELOCYTES % (MANUAL) 1 % (0-1); MONOCYTES % (MANUAL) 8 % (3-13); SEGMENTED NEUTROPHILS % (MAN) 66 % (42-78); TOTAL CELLS COUNTED 100
[2020-04-01 07:13] LABS: ANISOCYTOSIS SLIGHT
[2020-04-01 07:14] LABS: POLYCHROMASIA SLIGHT
[2020-04-01 07:17] LABS: PLATELET COMMENT ADEQUATE
[2020-04-01 07:19] LABS: MYELOCYTES % (MANUAL) 1 % (0); PROMYELOCYTES % (MANUAL) 2 % (0)
[2020-04-01] MEDS: FLUOXETINE HCL 20 MG CAPSULE PO SCH (07:58)
[2020-04-01] MEDS: IPRATROPIUM/ALBUTEROL 0.5-2.5 MG/3 ML AMPUL NEB SCH (08:27)
[2020-04-01] MEDS: CHOLECALCIFEROL (D3) 1,000 UNIT (25 MCG) TABLET PO SCH (09:03)
[2020-04-01] MEDS: ZINC SULFATE 220 MG CAPSULE PO SCH (09:03)
[2020-04-01] MEDS: ASPIRIN 81 MG TABLET, CHEWABLE PO SCH (09:03)
[2020-04-01] MEDS: ENOXAPARIN SODIUM INJ 40 MG/0.4 ML DISP.SYRIN SUBCUT SCH (09:03)
[2020-04-01] MEDS: ASCORBIC ACID 500 MG TABLET PO SCH (09:03)
[2020-04-01] MEDS: DEXAMETHASONE SOD PHOS INJ 10 MG/1 ML VIAL IV SCH (09:04)
[2020-04-01 09:17] VITALS: BP 128/64
--- NOTE | 2020-04-01 15:02 | PDOC DISCHARGE SUMMARY ---
Impression - Admit/DC Date/PCP Admission Date/Primary Care Provider: 03/25/20 09:30 ADRIÁN CHOW Discharge Date: 04/01/20 - Discharge Diagnosis (1) Acute respiratory failure with hypoxia Is this a current diagnosis for this admission?: Yes (2) Bradycardia Is this a current diagnosis for this admission?: Yes (3) HTN (hypertension) Is this a current diagnosis for this admission?: Yes (4) Lab test positive for detection of COVID-19 virus Is this a current diagnosis for this admission?: Yes (5) Morbid obesity with BMI of 45.0-49.9, adult Is this a current diagnosis for this admission?: Yes (6) Pneumonia due to 2019 novel coronavirus Is this a current diagnosis for this admission?: Yes - Assessment Summary: Ms. Marilou Crockett is a 40 year old morbidly obese (BMI 45) woman with PMH of HTN and BLE edema who presented with SOB due to COVID pneumonia. She had acute hypoxemic respiratory failure and initially required O2 support. She received a 5 day course of remdesivir, 1 dose of convalescent plasma and Dexamethasone x8 days. Hospital course was complicated by several episodes of asymptomatic bradycardia when her home metoprolol was resumed. Metoprolol was thus discontinued. She was also normotensive throughout her hospital stay and did not require antihypertensive therapy, and so her home BP medications have been discontinued. She was advised to follow up with her PCP in 1-2 weeks to have her BP/HR rechecked and for consideration of restarting these home medications. She is now stable for discharge home. - Additional Information Resuscitation Status: Full Code Discharge Diet: Cardiac Discharge Activity: Activity As Tolerated, Keep Legs Elevated, Walk Frequently Referrals: EMILY STERN FNP-C [Primary Care Provider] - Follow up as needed Prescriptions: Guaifenesin/Codeine Phos [Robitussin-AC Liquid 5 ml Udcup] 5 ml PO QIDP PRN #30 udc PRN Reason: Cough Home Medications: Pantoprazole Sodium [Protonix [address] Tablet] 40 mg PO QAM #30 tablet. 01/15/20 Fluoxetine HCl [Prozac] 20 mg PO QAM 03/25/20 Gabapentin [Neurontin 300 mg Capsule] 300 mg PO Q8 03/25/20 Pravastatin Sodium 40 mg PO DAILY 03/25/20 Guaifenesin/Codeine Phos [Robitussin-AC Liquid 5 ml Udcup] 5 ml PO QIDP PRN #30 udc 04/01/20 History of Present Illiness History of Present Illness: MARILOU CROCKETT is a 40 year old female Physical Exam Vital Signs: Temp Pulse Resp BP Pulse Ox 98.4 F 89 18 128/64 H 94 04/01/20 11:34 04/01/20 11:34 04/01/20 11:34 04/01/20 11:34 04/01/20 11:34 Intake & Output 03/31/20 04/01/20 04/02/20 06:59 06:59 06:59 Intake Total 1358 1560 Output Total 2900 2320 Balance -1542 -760 Weight 125.6 kg 123.5 kg Results Laboratory Results: WBC 12.8 10^3/uL (4.0-10.5) H 04/01/20 06:15 RBC 3.92 10^6/uL (3.72-5.28) 04/01/20 06:15 Hgb 11.4 g/dL (12.0-15.5) L 04/01/20 06:15 Hct 33.5 % (36.0-47.0) L 04/01/20 06:15 MCV 85 fl (80-97) 04/01/20 06:15 MCH 29.1 pg (27.0-33.4) 04/01/20 06:15 MCHC 34.1 g/dL (32.0-36.0) 04/01/20 06:15 RDW 14.3 % (11.5-14.0) H 04/01/20 06:15 Plt Count 414 10^3/uL (150-450) 04/01/20 06:15 Lymph % (Auto) Not Reportable 04/01/20 06:15 Morrow % (Auto) Not Reportable 04/01/20 06:15 Eos % (Auto) Not Reportable 04/01/20 06:15 Baso % (Auto) Not Reportable 04/01/20 06:15 Absolute Neuts (auto) Not Reportable 04/01/20 06:15 Absolute Lymphs (auto) Not Reportable 04/01/20 06:15 Absolute Monos (auto) Not Reportable 04/01/20 06:15 Absolute Eos (auto) Not Reportable 04/01/20 06:15 Absolute Basos (auto) Not Reportable 04/01/20 06:15 Total Counted 100 04/01/20 06:15 Seg Neutrophils % Not Reportable 04/01/20 06:15 Seg Neuts % (Manual) 66 % (42-78) 04/01/20 06:15 Band Neutrophils % 2 % (3-5) L 03/28/20 06:16 Lymphocytes % (Manual) 22 % (13-45) 04/01/20 06:15 Monocytes % (Manual) 8 % (3-13) 04/01/20 06:15 Eosinophils % (Manual) 0 % (0-6) 04/01/20 06:15 Basophils % (Manual) 0 % (0-2) 04/01/20 06:15 Metamyelocytes % 1 % (0-1) 04/01/20 06:15 Myelocytes % 1 % (0) H 04/01/20 06:15 Promyelocytes % 2 % (0) H 04/01/20 06:15 Abs Neuts (Manual) 9.0 10^3/uL (1.7-8.2) H 04/01/20 06:15 Abs Lymphs (Manual) 2.8 10^3/uL (0.5-4.7) 04/01/20 06:15 Abs Monocytes (Manual) 1.0 10^3/uL (0.1-1.4) 04/01/20 06:15 Absolute Eos (Manual) 0.0 10^3/uL (0.0-0.6) 04/01/20 06:15 Abs Basophils (Manual) 0.0 10^3/uL (0.0-0.2) 04/01/20 06:15 Nucleated RBCs 1 /100 WBC (0) 03/28/20 06:16 Toxic Granulation 1+ 03/30/20 05:30 Platelet Comment ADEQUATE 04/01/20 06:15 Polychromasia SLIGHT 04/01/20 06:15 Poikilocytosis SLIGHT 03/29/20 05:09 Anisocytosis SLIGHT 04/01/20 06:15 Ovalocytes SLIGHT 03/31/20 05:35 Schistocytes SLIGHT 03/31/20 05:35 RBC Morph Comment NORMO-CYTIC/CHROMIC 03/30/20 05:30 D-Dimer 0.27 ug/mL (0.00-0.50) 03/25/20 06:01 Carbonic Acid 1.14 mmol/L (1.05-1.35) 03/25/20 07:43 HCO3/H2CO3 Ratio 23:1 03/25/20 07:43 ABG pH 7.46 (7.35-7.45) H 03/25/20 07:43 ABG pCO2 37.9 mmHg (35-45) 03/25/20 07:43 ABG pO2 60.2 mmHg (80-100) L 03/25/20 07:43 ABG HCO3 26.5 mmol/L (20-24) H 03/25/20 07:43 ABG Total CO2 27.7 mmol/L (21-25) H 03/25/20 07:43 ABG O2 Saturation 92.5 % (94-98) L 03/25/20 07:43 ABG Base Excess 2.8 mmol/L 03/25/20 07:43 FiO2 ROOM AIR 03/25/20 07:43 Sodium 136.3 mmol/L (137-145) L 04/01/20 06:15 Potassium 4.5 mmol/L (3.6-5.0) 04/01/20 06:15 Chloride 107 mmol/L (98-107) 04/01/20 06:15 Carbon Dioxide 21 mmol/L (22-30) L 04/01/20 06:15 Anion Gap 8 (5-19) 04/01/20 06:15 BUN 20 mg/dL (7-20) 04/01/20 06:15 Creatinine 0.57 mg/dL (0.52-1.25) 04/01/20 06:15 Est GFR ( Amer) > 60 (>60) 04/01/20 06:15 Est GFR (MDRD) Non-Af > 60 (>60) 04/01/20 06:15 Glucose 103 mg/dL (75-110) 04/01/20 06:15 Lactic Acid 1.2 mmol/L (0.7-2.1) 03/25/20 13:15 Calcium 8.5 mg/dL (8.4-10.2) 04/01/20 06:15 Magnesium 2.0 mg/dL (1.6-2.3) 03/28/20 06:16 Ferritin 41.50 ng/mL (6.2-137.0) 03/29/20 05:09 Total Bilirubin 0.3 mg/dL (0.2-1.3) 04/01/20 06:15 Direct Bilirubin 0.2 mg/dL (0.0-0.4) 04/01/20 06:15 Neonat Total Bilirubin Not Reportable 04/01/20 06:15 Neonat Direct Bilirubin Not Reportable 04/01/20 06:15 Neonat Indirect Bili Not Reportable 04/01/20 06:15 AST 14 U/L (14-36) 04/01/20 06:15 ALT 16 U/L (<35) 04/01/20 06:15 Alkaline Phosphatase 59 U/L (38-126) 04/01/20 06:15 Lactate Dehydrogenase 355 U/L (120-246) H 03/25/20 11:24 Creatine Kinase 55 U/L (30-135) 03/25/20 06:01 Troponin I < 0.012 ng/mL 03/29/20 05:09 C-Reactive Protein 28.6 mg/L (<10.0) H 03/27/20 05:00 Total Protein 5.5 g/dL (6.3-8.2) L 04/01/20 06:15 Albumin 2.8 g/dL (3.5-5.0) L 04/01/20 06:15 Urine Color YELLOW 03/25/20 08:10 Urine Appearance CLEAR 03/25/20 08:10 Urine pH 6.0 (5.0-9.0) 03/25/20 08:10 Ur Specific [place] 1.018 03/25/20 08:10 Urine Protein NEGATIVE mg/dL (NEGATIVE) 03/25/20 08:10 Urine Glucose (UA) NEGATIVE mg/dL (NEGATIVE) 03/25/20 08:10 Urine Ketones NEGATIVE mg/dL (NEGATIVE) 03/25/20 08:10 Urine Blood NEGATIVE (NEGATIVE) 03/25/20 08:10 Urine Nitrite NEGATIVE (NEGATIVE) 03/25/20 08:10 Urine Bilirubin NEGATIVE (NEGATIVE) 03/25/20 08:10 Urine Urobilinogen NEGATIVE mg/dL (<2.0) 03/25/20 08:10 Ur Leukocyte Esterase NEGATIVE (NEGATIVE) 03/25/20 08:10 Urine WBC (Auto) 3 /HPF 03/25/20 08:10 Urine RBC (Auto) 0 /HPF 03/25/20 08:10 Squamous Epi Cells Auto 1 /HPF 03/25/20 08:10 Urine Mucus (Auto) RARE /LPF 03/25/20 08:10 Urine Ascorbic Acid NEGATIVE (NEGATIVE) 03/25/20 08:10 Stl C. Difficile GDH Ag Cancelled 03/27/20 05:15 Stl C.difficile Tox A&B Cancelled 03/27/20 05:15 Blood Type A POSITIVE 03/27/20 10:32 03/25/20 03/29/20 06:01 05:09 Troponin I < 0.012 < 0.012 Impressions: Chest X-Ray 03/25/20 07:02 IMPRESSION: Patchy bilateral lung parenchymal airspace disease worrisome for multifocal pneumonia Stroke Is this a Stroke Patient?: No Acute Heart Failure Is this a Heart Failure Patient?: No
[2020-04-01 15:31] LABS: PATH REVIEW PATHOLOGIST REVIEWED
== END 2020-04-01 12:55 | disposition home or self-care (01) | DRG 177 ==
LOC: ER 05:35 → EH 09:30 → 3N 13:01
PROVIDERS: ADMIT Internal Medicine; ATTEND Hospitalist
PROC: XW033E5 Introduction of Remdesivir Anti-infective into Peripheral Vein, Percutaneous Approach, New Technology Group 5 (ICD-10-PCS; 2020-03-25)
PROC: XW13325 Transfusion of Convalescent Plasma (Nonautologous) into Peripheral Vein, Percutaneous Approach, New Technology Group 5 (ICD-10-PCS; 2020-03-27)
PROC: 3E02340 Introduction of Influenza Vaccine into Muscle, Percutaneous Approach (ICD-10-PCS; principal; 2020-04-01)
DX: U07.1 COVID-19 (principal); J12.89 Other viral pneumonia; J96.01 Acute respiratory failure with hypoxia; E87.1 Hypo-osmolality and hyponatremia; Z68.42 Body mass index [BMI] 45.0-49.9, adult; I10 Essential (primary) hypertension; K21.9 Gastro-esophageal reflux disease without esophagitis; E66.01 Morbid (severe) obesity due to excess calories; J45.20 Mild intermittent asthma, uncomplicated; E78.5 Hyperlipidemia, unspecified; E87.6 Hypokalemia; F41.1 Generalized anxiety disorder; Z82.49 Family history of ischemic heart disease and other diseases of the circulatory system; Z83.3 Family history of diabetes mellitus; Z23 Encounter for immunization; R00.1 Bradycardia, unspecified; T44.7X5A Adverse effect of beta-adrenoreceptor antagonists, initial encounter; Y92.230 Patient room in hospital as the place of occurrence of the external cause
CPT/HCPCS: 36415; 36430; 71045; 80053; 81001; 82550; 82728; 82803; 83605; 83615; 83735; 84484; 85025; 85379; 86140; 86900; 86901; 87040; 90686; 93005; 93010; 96361; 96374; 96375; 99285; J1100; J1650; J1885; J2405; J2930; J3490; J7030; J7050; J7120; J8540

== ENCOUNTER 2020-04-03 11:38 | Emergency (ER) | payer BC ==
--- NOTE | 2020-04-03 11:55 | ER Document Report ---
ED Medical Screen (RME) - General Chief Complaint: Slurred Speech Stated Complaint: SLURRED SPEECH,HEADACHE Time Seen by Provider: 04/03/20 11:53 Primary Care Provider: EMILY STERN FNP-C [Primary Care Provider] - Follow up as needed Mode of Arrival: Wheelchair Information source: Patient Notes: 40-year-old female presented to ED for complaint of feeling like she cannot get her words out. She states she is feels "stupid. She states she is slurring her words and having trouble saying what she wants to say started last night states he noticed that this morning. She does have negative facial droop negative palmar drift is able to raise both legs equally is able to answer questions appropriately but states she does have a hard time getting it out some of her words are slurred. She was covered positive less than 21 days ago. Will do stroke protocol. I have greeted and performed a rapid initial assessment of this patient. A comprehensive ED assessment and evaluation of the patient, analysis of test results and completion of medical decision making process will be conducted by an additional ED providers. TRAVEL OUTSIDE OF THE [place] IN LAST 30 DAYS: No - Related Data Allergies/Adverse Reactions: alyson Allergy (Unknown, Verified 03/25/20 06:11) pepper (genus Capsicum) Allergy (Unknown, Verified 03/25/20 06:11) PLASTIC GROCERY BAGS Adverse Reaction (Uncoded 03/25/20 06:11) Past Medical History - Past Medical History Cardiac Medical History: Reports: Hx Hypercholesterolemia, Hx Hypertension Pulmonary Medical History: Reports: Hx Asthma GI Medical History: Reports: Hx Gastroesophageal Reflux Disease Psychiatric Medical History: Reports: Hx Anxiety, Hx Depression Traumatic Medical History: Reports: Hx Fractures - Left talus Past Surgical History: Reports: Hx Tubal Ligation Doctor's Discharge - Discharge Referrals: EMILY STERN FNP-C [Primary Care Provider] - Follow up as needed
--- NOTE | 2020-04-03 12:26 | RADIOLOGY REPORT (SQ) ---
EXAM DESCRIPTION: CT HEAD WITHOUT IMAGES COMPLETED DATE/TIME: 04/03/2020 12:04 pm REASON FOR STUDY: Positive COVID Strokelike symptoms COMPARISON: MR 2014 TECHNIQUE: Axial images acquired through the brain without intravenous contrast. Images reviewed wi th bone, brain and subdural windows. Additional sagittal and coronal reconstructions were generated. Images stored on PACS. All CT scanners at this facility use dose modulation, iterative reconstruction, and/or weight based d osing when appropriate to reduce radiation dose to as low as reasonably achievable (ALARA). [facility]: Dose Right [facility]: CareDose [facility]: Dose Right [facility]: Teradose 4D [facility]: Smart Pinshape RADIATION DOSE: CT Rad equipment meets quality standard of care and radiation dose reduction techniq ues were employed. CTDIvol: 53.2 mGy. DLP: 1044 mGy-cm. mGy. LIMITATIONS: None. FINDINGS: VENTRICLES: Normal size and contour. CEREBRUM: No masses. No hemorrhage. No midline shift. No evidence for acute infarction. Normal gra y/white matter differentiation. No areas of low density in the white matter. CEREBELLUM: No masses. No hemorrhage. No alteration of density. No evidence for acute infarction. EXTRAAXIAL SPACES: No fluid collections. No masses. ORBITS AND GLOBE: No intra- or extraconal masses. Normal contour of globe without masses. CALVARIUM: No fracture. PARANASAL SINUSES: No fluid or mucosal thickening. SOFT TISSUES: No mass or hematoma. OTHER: No other significant finding. IMPRESSION: NORMAL BRAIN CT WITHOUT CONTRAST. EVIDENCE OF ACUTE STROKE: NO. COMMENT: Quality ID # [id number]: Final reports with documentation of one or more dose reduction techniques (e.g., Automated exposure control, adjustment of the mA and/or kV according to patient size, use of iterative reconstruction technique) TECHNICAL DOCUMENTATION: JOB ID: [id number] 2010 [employer]- All Rights Reserved Reading location - IP/workstation name: [email or web address]
--- NOTE | 2020-04-03 12:30 | RADIOLOGY REPORT (SQ) ---
EXAM DESCRIPTION: CHEST SINGLE VIEW IMAGES COMPLETED DATE/TIME: 04/03/2020 12:17 pm REASON FOR STUDY: Positive COVID Strokelike symptoms COMPARISON: 03/31/2020 EXAM PARAMETERS: NUMBER OF VIEWS: One view. TECHNIQUE: Single frontal radiographic view of the chest acquired. RADIATION DOSE: NA LIMITATIONS: None. FINDINGS: LUNGS AND PLEURA: No opacities, masses or pneumothorax. No pleural effusion. MEDIASTINUM AND HILAR STRUCTURES: No masses. Contour normal. HEART AND VASCULAR STRUCTURES: Heart normal in size. Normal vasculature. BONES: No acute findings. HARDWARE: None in the chest. OTHER: No other significant finding. IMPRESSION: NO ACUTE RADIOGRAPHIC FINDING IN THE CHEST. TECHNICAL DOCUMENTATION: JOB ID: [id number] 2010 [email or web address]- All Rights Reserved Reading location - IP/workstation name: [email or web address]
[2020-04-03 12:38] LABS: INTERNATIONAL RATION (INR) 0.98
[2020-04-03 12:39] LABS: PARTIAL THROMBOPLASTIN TIME 27.6 SEC (23.5-35.8)
[2020-04-03 12:41] LABS: PROTHROMBIN TIME 13.2 SEC (11.4-15.4)
[2020-04-03 12:42] LABS: HEMATOCRIT 36.7 % (36.0-47.0); HEMOGLOBIN 12.7 g/dL (12.0-15.5); MEAN CORPUSCULAR HEMOGLOBIN 29.7 pg (27.0-33.4); MEAN CORPUSCULAR HGB CONC 34.6 g/dL (32.0-36.0); MEAN CORPUSCULAR VOLUME 86 fl (80-97); PLATELET COUNT 461 10^3/uL (150-450); RED BLOOD COUNT 4.27 10^6/uL (3.72-5.28); RED CELL DISTRIBUTION WIDTH 14.5 % (11.5-14.0)
[2020-04-03 12:58] LABS: ALBUMIN 3.1 g/dL (3.5-5.0); ALKALINE PHOSPHATASE 68 U/L (38-126); ANION GAP 9 (5-19); ASPARTATE AMINO TRANSFERASE 16 U/L (14-36); BILIRUBIN,DIRECT 0.2 mg/dL (0.0-0.4); BILIRUBIN,TOTAL 0.4 mg/dL (0.2-1.3); BLOOD UREA NITROGEN 20 mg/dL (7-20); CALCIUM 8.4 mg/dL (8.4-10.2); CARBON DIOXIDE 20 mmol/L (22-30); CHLORIDE 109 mmol/L (98-107); GLUCOSE 124 mg/dL (75-110); POTASSIUM 3.8 mmol/L (3.6-5.0)
[2020-04-03 13:00] LABS: CREATINE KINASE < 20 U/L (30-135)
[2020-04-03 13:14] LABS: CREATINE KINASE MB 0.25 ng/mL (<4.55); TROPONIN I < 0.012 ng/mL
[2020-04-03 13:20] LABS: ABSOLUTE LYMPHOCYTES# (MANUAL) 5.2 10^3/uL (0.5-4.7); ABSOLUTE MONOCYTES # (MANUAL) 0.3 10^3/uL (0.1-1.4); BAND NEUTROPHILS % (MANUAL) 5 % (3-5); BASOPHILS % (MANUAL) 0 % (0-2); EOSINOPHILS % (MANUAL) 2 % (0-6); LYMPHOCYTES % (MANUAL) 37 % (13-45); MONOCYTES % (MANUAL) 2 % (3-13); SEGMENTED NEUTROPHILS % (MAN) 54 % (42-78); TOTAL CELLS COUNTED 100
[2020-04-03 13:21] LABS: ANISOCYTOSIS SLIGHT; PLATELET COMMENT INCREASED; POLYCHROMASIA SLIGHT
[2020-04-03 13:37] LABS: ARTERIAL BLOOD BASE EXCESS -3.6 mmol/L; ARTERIAL BLOOD FIO2 ROOM AIR; ARTERIAL BLOOD H2CO3 0.82 mmol/L (1.05-1.35); ARTERIAL BLOOD HCO3 18.9 mmol/L (20-24); ARTERIAL BLOOD O2 SATURATION 97.2 % (94-98); ARTERIAL BLOOD PCO2 27.4 mmHg (35-45); ARTERIAL BLOOD PH 7.46 (7.35-7.45); ARTERIAL BLOOD PO2 87.9 mmHg (80-100); ARTERIAL BLOOD TOTAL CO2 19.7 mmol/L (21-25)
[2020-04-03 13:45] LABS: APPEARANCE,URINE CLEAR; BILIRUBIN,URINE NEGATIVE (NEGATIVE); COLOR,URINE YELLOW; GLUCOSE, URINE NEGATIVE (NEGATIVE); KETONES,URINE NEGATIVE (NEGATIVE); LEUKOCYTE ESTERASE,URINE SMALL (NEGATIVE); NITRITE,URINE NEGATIVE (NEGATIVE); PROTEIN,URINE NEGATIVE (NEGATIVE); URINE SPECIFIC GRAVITY 1.018; UROBILINOGEN,URINE NEGATIVE mg/dL (<2.0)
--- NOTE | 2020-04-03 14:13 | ER Document Report ---
Entered by ASHLEY STEVEN SCRIBE 04/03/20 1269 Acting as scribe for:ERICKA AGUILAR MD ED General - General Chief Complaint: Slurred Speech Stated Complaint: SLURRED SPEECH,HEADACHE Time Seen by Provider: 04/03/20 11:53 Primary Care Provider: EMILY STERN FNP-C [Primary Care Provider] - Follow up as needed Mode of Arrival: Wheelchair Information source: Patient Notes: This 40 year old female patient presents to the ED today for evaluation of expressive aphasia that started last night. Patient reports that she noticed last night that she was unable to express what she was thinking, stating "it feels like i can't get out what I want to say." She reports that the symptoms would come and go and sometimes be worse than at other times. The symptoms are not present at this time. Patient tested positive for COVID on 03/15 and was seen here on 03/25 due to her symptoms. She was admitted for pneumonia and hypoxemia related to COVID and was just discharged x2 days ago. She states that she still felt tired and short of breath when she was discharged and did a nebulizer treatment at home last night with mild relief. She complains of symptoms today including a left-sided headache(not the worst that she has had), numbness around her lips, and nausea/vomiting. She also reported numbness to the left side of her body, and t hat is not a new finding, it is something that she has had in the past that comes and goes. She also complains of sternal chest pain. TRAVEL OUTSIDE OF THE [place] IN LAST 30 DAYS: No - Related Data Allergies/Adverse Reactions: alyson Allergy (Unknown, Verified 03/25/20 06:11) pepper (genus Capsicum) Allergy (Unknown, Verified 03/25/20 06:11) PLASTIC GROCERY BAGS Adverse Reaction (Uncoded 03/25/20 06:11) Past Medical History - General Information source: Patient - Social History Smoking Status: Never Smoker Cigarette use (# per day): No Chew tobacco use (# tins/day): No Smoking Education Provided: No Frequency of alcohol use: None Drug Abuse: None Family History: Reviewed & Not Pertinent, CAD - Dad w/ stents in his 40s Patient has suicidal ideation: No Patient has homicidal ideation: No - Past Medical History Cardiac Medical History: Reports: Hx Hypercholesterolemia, Hx Hypertension Pulmonary Medical History: Reports: Hx Asthma GI Medical History: Reports: Hx Gastroesophageal Reflux Disease Psychiatric Medical History: Reports: Hx Anxiety, Hx Depression Traumatic Medical History: Reports: Hx Fractures - Left talus Past Surgical History: Reports: Hx Tubal Ligation Review of Systems - Review of Systems Constitutional: See HPI, Recent illness - COVID + 03/15 EENT: No symptoms reported Cardiovascular: See HPI, Chest pain - chest wall Respiratory: See HPI, Short of breath Gastrointestinal: See HPI, Nausea, Vomiting Genitourinary: No symptoms reported Female Genitourinary: No symptoms reported Musculoskeletal: No symptoms reported Skin: No symptoms reported Hematologic/Lymphatic: No symptoms reported Neurological/Psychological: See HPI, Headaches, Speech impairment, Numbness - lips -: Yes All other systems reviewed and negative Physical Exam - Vital signs Vitals: Pulse Resp BP Pulse Ox 115 H 20 126/78 H 96 04/03/20 12:00 04/03/20 12:00 04/03/20 12:00 04/03/20 12:00 - General General appearance: Alert, Anxious In distress: None - HEENT Head: Normocephalic, Atraumatic Eyes: Normal Pupils: PERRL - Respiratory Respiratory status: Tachypnea Breath sounds: Other - Coarse breath sounds. No: Wheezing Chest palpation: Tender - Anterior chest well tenderness to palpation in the sternal region - Cardiovascular Rhythm: Regular, Tachycardia Heart sounds: Normal auscultation Murmur: No Friction rub: No Gallop: None auscultated - Abdominal Inspection: Obese Distension: No distension Bowel sounds: Normal Tenderness: Nontender - Abdomen soft Organomegaly: No organomegaly - Back Back: Normal, Nontender - Extremities General upper extremity: Normal inspection General lower extremity: Normal inspection. No: Edema - Neurological Neuro grossly intact: Yes Cognition: Normal Orientation: AAOx4 [place] Coma Scale Eye Opening: Spontaneous [place] Coma Scale Verbal: Oriented [place] Coma Scale Motor: Obeys Commands [place] Coma Scale Total: 15 Speech: Normal - Speech is clear; patient is able to express her thoughts without any difficulty Cranial nerves: Normal. No: Facial palsy, Tongue deviation - Psychological Associated symptoms: Anxious - Skin Skin Temperature: Warm Skin Moisture: Dry Skin Color: Normal Course - Re-evaluation Re-evalutation: 04/03/20 14:52 The patient was evaluated during the global COVID-19 pandemic and that diagnosis was suspected/considered upon their initial presentation. Their evaluation, treatment and testing was consistent with current guidelines for patients who present with complaints or symptoms that may be related to COVID-19. 04/03/20 17:18 At this time the patient heart rate is about 80, the patient is not tachypneic. Patient does feel better. Speech is clear and there is no expressive problems at this time. She is concerned about what to do if the expressive aphasia difficulty comes back, and advised her if it comes back and seems to persist more than several minutes, then she should return the emergency room for further evaluation. - Vital Signs Vital signs: Temp Pulse Resp BP Pulse Ox 116 H 21 H 135/90 H 98 04/03/20 12:00 04/03/20 17:00 04/03/20 16:01 04/03/20 17:00 - Laboratory Result Diagrams: 04/03/20 12:20 04/03/20 12:20 Laboratory results interpreted by me: 04/03/20 04/03/20 04/03/20 12:20 12:20 12:20 WBC 14.0 H RDW 14.5 H Plt Count 461 H Monocytes % (Manual) 2 L Abs Neuts (Manual) 8.3 H Abs Lymphs (Manual) 5.2 H D-Dimer 0.61 H Carbonic Acid ABG pH ABG pCO2 ABG HCO3 ABG Total CO2 Chloride 109 H Carbon Dioxide 20 L Glucose 124 H Creatine Kinase < 20 L Total Protein 6.0 L Albumin 3.1 L Ur Leukocyte Esterase 04/03/20 04/03/20 13:15 13:15 WBC RDW Plt Count Monocytes % (Manual) Abs Neuts (Manual) Abs Lymphs (Manual) D-Dimer Carbonic Acid 0.82 L ABG pH 7.46 H ABG pCO2 27.4 L ABG HCO3 18.9 L ABG Total CO2 19.7 L Chloride Carbon Dioxide Glucose Creatine Kinase Total Protein Albumin Ur Leukocyte Esterase SMALL H - Diagnostic Test Radiology reviewed: Image reviewed, Reports reviewed - CTA chest no pulmonary embolus. Considerable patchy airspace disease in both lungs suggestive of an atypical infectious/inflammatory process. The patient is recovering from a known COVID-[address] of the head was unremarkable. - EKG Interpretation by Me EKG shows normal: Sinus rhythm, [place], Intervals, QRS Complexes. abnormal: ST-T Waves - Borderline inferior T abnormalities Rate: Tachycardia - 115 Rhythm: NSR Discharge - Discharge Clinical Impression: Slurring of speech, Expressive aphasia, Acute hyperventilation syndrome, Perioral paresthesias, Anterior chest wall pain, Shortness of breath, Lab test positive for detection of COVID-19 virus Condition: Stable Disposition: HOME, SELF-CARE Additional Instructions: COVID-19 Viral Syndrome: Many of your symptoms today are the result of the COVID-19 infection that you have not completely recovered from. Viruses not only cause "colds," but can cause many different symptoms including generalized aching, fever, headache, cough, diarrhea, nausea, vomiting, and fatigue. The treatment, for the most part, is simply relief of symptoms. This means that antibiotics are usually not given. Rest, fluids, pain medications and, occasionally, medication for the specific symptoms that are most bothersome will be prescribed. Use good handwashing to avoid passing the virus to others. Contact the physician if you develop any new or worsening symptoms such as severe headache, stiff neck, high fever, chest pain, productive cough, or shortness of breath that does not improve with breathing treatments. You should be rechecked if you don't see marked improvement within seven to 10 days. Chest Wall Pain: Your chest pain has been diagnosed as coming from the chest wall. This is often caused by straining the muscles or joints in the chest during physical activity, direct trauma, coughing, or vigorous vomiting. Persons with arthritis are especially prone to this type of pain, due to inflammation of the cartilage joints near the breast bone. Occasionally, no cause can be found. Rest from strenuous physical activity. This kind of chest pain is usually made worse by movement of the chest. Depending on the symptoms, we may prescribe medicine for pain, muscle relaxation, and antiinflammatory effects. If the pain is new, and seems to be due to muscle strain, cold packs can help. Otherwise, apply gentle warmth to the painful area for 15 minutes every hour or two. You should contact the doctor immediately if things change. Further evaluation is needed if you develop a fever or cough, if the nature of the pain changes, or if you become short of breath. Hyperventilation: You have had an episode of hyperventilation. The symptoms occur because rapid breathing changes the body's chemical balance. Hyperventilation causes dizziness, numbness (particularly of the hands and face), chest pain, muscle spasms, and anxiety. Once an episode begins, it's extremely difficult to control the "need" to breathe rapidly. Hyperventilation may be provoked by drug effects, nausea, or illness, but is often due to anxiety. If no specific cause for the problem was found, treatment for anxiety may be necessary. Once the chemical changes have occurred, the hyperventilation is likely to recur. If you feel the symptoms again, rebreathe your air with a paper bag for several minutes. Sometimes hyperventilation is a symptom of an underlying metabolic or lung problem. If new symptoms develop (such as productive cough, fever, or chest pain), or if you are unable to get relief with rebreathing your exhaled air, call the physician. There was no obvious explanation for the problems you were having off and on saying words that you were thinking. This may be a side effect of the COVID-19 infection. Many of your other symptoms you are having are definitely due to the COVID virus infection. You should drink plenty of fluids and get plenty of rest. If you feel you are hyper ventilating, try to calm down like you did today. If you feel short of breath and a breathing treatment does not improve your breathing, then you should return to the emergency room. If you are having problems expressing yourself that persists more than several minutes, then you should return to the emergency room for further evaluation. If you are having symptoms of numbness or muscle weakness that lasts more than several minutes, then you should return to the emergency room for further evaluation. Follow-up with your primary care provider to monitor your healing from the COVID-19 infection. RETURN TO THE EMERGENCY ROOM IF ANY NEW OR WORSENING SYMPTOMS. Referrals: LEENA,EMILY E, OPERATIONS PROJECT MANAGER-C [Primary Care Provider] - Follow up as needed I personally performed the services described in the documentation, reviewed and edited the documentation which was dictated to the scribe in my presence, and it accurately records my words and actions.
[2020-04-03] MEDS ORDERED: RINGERS SOLUTION,LACTATED 1,000 ML IV ONE (14:17)
[2020-04-03] MEDS ORDERED: KETOROLAC TROMETHAMINE INJ/PF 30 MG/1 ML SDV IV ONE (14:51)
--- NOTE | 2020-04-03 15:16 | EKG REPORT ---
SEVERITY:- BORDERLINE ECG - SINUS TACHYCARDIA BORDERLINE T ABNORMALITIES, INFERIOR LEADS : Confirmed by: Razia Montelongo MD 03-Apr-2020 15:15:32
--- NOTE | 2020-04-03 16:58 | RADIOLOGY REPORT (SQ) ---
EXAM DESCRIPTION: CTA CHEST IMAGES COMPLETED DATE/TIME: 04/03/2020 4:39 pm REASON FOR STUDY: Short of breath, elevated D-dimer, positive Covid COMPARISON: None. TECHNIQUE: CT scan of the chest performed using helical scanning technique with dynamic intravenous contrast injection. Images reviewed with lung, soft tissue and bone windows. Reconstructed coronal and sagittal MPR images reviewed. Additional 3 dimensional post-processing performed to develop Maximal Intensity Projection images (NM P). All images stored on PACS. All CT scanners at this facility use dose modulation, iterative reconstruction, and/or weight based d osing when appropriate to reduce radiation dose to as low as reasonably achievable (ALARA). [facility]: Dose Right [facility]: CareDose [facility]: Dose Right [facility]: Teradose 4D [facility]: Phase III Development CONTRAST TYPE AND DOSE: contrast/concentration: Isovue 350.00 mmol/ml; Total Contrast Delivered: 75. 0 ml; Total Saline Delivered: 55.0 ml Contrast bolus adequate for pulmonary arteries and aorta. RENAL FUNCTION: BUN 20 creatinine 0.76 RADIATION DOSE: CT Rad equipment meets quality standard of care and radiation dose reduction techniq ues were employed. CTDIvol: 9.9 - 28.3 mGy. DLP: 904 mGy-cm. . LIMITATIONS: None. FINDINGS: LUNGS AND PLEURA: There is considerable patchy opacification in both lungs. Minimal left pleural effusion. AORTA AND GREAT VESSELS: No aneurysm. No dissection. HEART: Small pericardial effusion. No significant coronary artery calcifications. PULMONARY ARTERIES: No emboli visualized in the main pulmonary arteries or the segmental branches. HILAR AND MEDIASTINAL STRUCTURES: No identified masses or abnormal nodes. HARDWARE: None in the chest. UPPER ABDOMEN: No significant findings. Limited exam. THYROID AND OTHER SOFT TISSUES: No masses. No adenopathy. BONES: No acute or significant finding. 3D MIPS: Confirm above findings. OTHER: No other significant finding. IMPRESSION: 1. There is no pulmonary embolus. There is no aortic aneurysm or dissection. 2. There is considerable patchy airspace disease in both lungs suggestive of an atypical infectious/ inflammatory process. COMMENT: Quality ID # [id number]: Final reports with documentation of one or more dose reduction techniques (e.g., Automated exposure control, adjustment of the mA and/or kV according to patient size, use of iterative reconstruction technique) TECHNICAL DOCUMENTATION: JOB ID: [id number] [employer]- All Rights Reserved Reading location - IP/workstation name: [email or web address]
[2020-04-03 17:15] VITALS: BP 135/90
== END 2020-04-03 19:56 | disposition home or self-care (01) ==
LOC: ER 11:38
DX: U07.1 COVID-19 (principal); R47.01 Aphasia; F45.8 Other somatoform disorders; R47.81 Slurred speech; R20.2 Paresthesia of skin; R51.9 Headache, unspecified; R07.89 Other chest pain; R06.02 Shortness of breath; E78.00 Pure hypercholesterolemia, unspecified; I10 Essential (primary) hypertension; Z98.51 Tubal ligation status
CPT/HCPCS: 93005; 99285; 96361; 96374; 36415; 82553; 82803; 82550; 84703; 85025; 85610; 85730; 80053; 81001; 84484; 85379; 71045; 70450; 71275; 93010; J1885; J7120

== ENCOUNTER → 2020-05-03 | Outpatient (CLI) | payer BC ==
--- NOTE | 2020-05-03 10:22 | RADIOLOGY REPORT (SQ) ---
EXAM DESCRIPTION: CHEST 2 VIEWS IMAGES COMPLETED DATE/TIME: 05/03/2020 9:59 am REASON FOR STUDY: SHORTNESS OF BREATH COMPARISON: 04/03/2020 EXAM PARAMETERS: NUMBER OF VIEWS: two views TECHNIQUE: Digital Frontal and Lateral radiographic views of the chest acquired. RADIATION DOSE: NA LIMITATIONS: none FINDINGS: LUNGS AND PLEURA: No opacities, masses or pneumothorax. No pleural effusion. MEDIASTINUM AND HILAR STRUCTURES: No masses or contour abnormalities. HEART AND VASCULAR STRUCTURES: Heart normal size. No evidence for failure. BONES: No acute findings. HARDWARE: None in the chest. OTHER: No other significant finding. IMPRESSION: NO ACUTE RADIOGRAPHIC FINDING IN THE CHEST. TECHNICAL DOCUMENTATION: JOB ID: [id number] 2010 [employer]- All Rights Reserved Reading location - IP/workstation name: [email or web address]
== END ==
LOC: RAD 09:48
PROVIDERS: ATTEND Nurse Practitioner Primary Care
DX: R06.02 Shortness of breath (principal)
CPT/HCPCS: 71046